=== PATIENT | male | born 1960 | race Caucasian/White ===

== ENCOUNTER 2016-08-29 18:30 | Inpatient (IN) | payer MEDICAID ==
[~2016-08-29] VITALS: Ht 188 cm; Wt 71.2 kg
[2016-08-29 18:32] VITALS: BP 130/98
[2016-08-29] MEDS ORDERED: POLY17PD65 GT (19:11)
[2016-08-29] MEDS ORDERED: MAGN400S60 GT (19:11)
[2016-08-29] MEDS ORDERED: BISA10SU46 RC (19:11)
[2016-08-29] MEDS ORDERED: TOPI25TA10 GT (19:11)
[2016-08-29] MEDS ORDERED: SACC250C4 GT (19:11)
[2016-08-29] MEDS ORDERED: KEP500I GT (19:11)
[2016-08-29] MEDS ORDERED: ASCO500S14 GT (19:11)
[2016-08-29] MEDS ORDERED: SYN.05 GT (19:11)
[2016-08-29] MEDS ORDERED: MOME0.051 NS (19:11)
[2016-08-29] MEDS ORDERED: CLOB10TA GT ×2 (19:11)
[2016-08-29] MEDS ORDERED: LEVE500V IV (19:11)
[2016-08-29] MEDS ORDERED: ROB1 GT (19:11)
[2016-08-29] MEDS ORDERED: LACO200T GT (19:11)
[2016-08-29] MEDS ORDERED: NA P135N RC (19:11)
[2016-08-29] MEDS ORDERED: BENZ2TAB27 GT (19:11)
[2016-08-29] MEDS ORDERED: ALBU-71 IH (19:11)
[2016-08-29] MEDS ORDERED: METO5SOL19 GT (19:11)
[2016-08-29] MEDS ORDERED: MONT10TA35 GT (19:11)
[2016-08-29] MEDS ORDERED: ATI.5 GT (19:11)
[2016-08-29] MEDS ORDERED: [UNRECOGNIZED DRUG - CODE] GT (19:11)
[2016-08-29] MEDS ORDERED: COM25S RC (19:11)
[2016-08-29] MEDS ORDERED: ACET160O46 GT (19:11)
[2016-08-29] MEDS ORDERED: DEXT15EL GT (19:11)
[2016-08-29] MEDS ORDERED: [UNRECOGNIZED DRUG - CODE] GT (19:11)
[2016-08-29] MEDS ORDERED: CARB200T1 GT ×2 (19:11)
[2016-08-29] MEDS ORDERED: LACT10SO11 GT (19:11)
--- NOTE | 2016-08-29 19:19 | NUR ---
PT NETO BLS. TAKEN TO BED 8
[2016-08-29 19:46] LABS: RED BLOOD CELL COUNT(AUTO) 4.76 MIL/uL (4.20-6.10); WHITE BLOOD COUNT (AUTO) 13.9 K/uL (4.8-10.8)
[2016-08-29 19:49] LABS: BASOPHILS # (AUTO) 0.5 K/uL (0.00-0.22); BASOPHILS % (AUTO) 3.7 % (0.0-2.0); EOSINOPHILS # (AUTO) 0.2 K/uL (0-0.4); EOSINOPHILS % (AUTO) 1.3 % (0.0-4.0); HEMATOCRIT 46.7 % (36-52); HEMOGLOBIN 15.2 g/dL (12.0-18.0); LYMPHOCYTES # (AUTO) 2.7 K/uL (2.0-11.5); LYMPHOCYTES % (AUTO) 19.1 % (20.5-51.1); MEAN CORPUSCULAR HEMOGLOBIN 32 pg (27-31); MEAN CORPUSCULAR HGB CONC 33 g/dL (33-37); MEAN CORPUSCULAR VOLUME 98 fL (80-94); MONOCYTES # (AUTO) 0.6 K/uL (0.8-1.0); MONOCYTES % (AUTO) 4.4 % (1.7-9.3); NEUTROPHILS # (AUTO) 9.9 K/uL (1.8-7.7); NEUTROPHILS % (AUTO) 71.5 % (42.2-75.2); PLATELET COUNT (AUTO) 315 K/uL (140-450); RED CELL DISTRIBUTION WIDTH 12.6 % (11.6-13.7)
[2016-08-29 19:54] LABS: CARBON DIOXIDE 31.3 mmol/L (21-32); POTASSIUM 3.3 mmol/L (3.5-5.1)
[2016-08-29 20:00] LABS: ALBUMIN 2.4 g/dL (3.4-5.0); TOTAL BILIRUBIN 0.3 mg/dL (0.0-1.0)
--- NOTE | 2016-08-29 20:00 | NUR ---
56Y/M PT. BIBA TO ED WITH C/O FEVER X 2 DAYS. PER EMS;BRAN PT. FROM [facility], HAVING FEVER X 2 DAYS AT 1400 T105, TYLENOL GIVEN T 100.4. O2 SAT 85 % ON SCENE, O2 2 LPM VIA NC, O2 SAT 96%. HX. HYPOTHYROIDISM, APHASIC, ON GT-TUBE, EPILEPSY. PT. AWAKE WITH EYES OPEN, RESPONSIVE TO TOUCH AND VERBAL STIMULI. BEDBOUND, ABLE TO MOVE BUE. RESPIRATIONS ON O2 2LPM VIA NC, EVEN AND UNLABORED, BL CLEAR, O2 SAT 97%. SKIN WARM AND DRY TO TOUCH. VSS, NO S/SX OF DISTRESS AT THIS TIME. ER MD MADE AWARE OF PT. STATUS.
[2016-08-29 20:10] LABS: LACTIC ACID 1.2 mmol/L (0.4-2.0)
[2016-08-29] MEDS ORDERED: ERYTHROMYCIN IV ONE (20:35)
[2016-08-29] MEDS ORDERED: VANCOMYCIN 1,000 MG in DEXTROSE 5% 250 ML IV ONE (20:35)
[2016-08-29] MEDS ORDERED: NACL 0.9% IV ONE (20:35)
[2016-08-29] MEDS ORDERED: NACL 0.9% 1,000 ML IV ONE (20:40)
[2016-08-29 20:58] LABS: BLOOD GAS BASE EXCESS 2.5 mmol/L (-2.0-2.0); BLOOD GAS HCO3 27.8 mmol/L; BLOOD GAS PCO2 45.2 mmHg (20-50); BLOOD GAS PH 7.406 (7.35-7.45); BLOOD GAS PO2 134.9 mmHg
[2016-08-29 20:59] LABS: BLOOD GAS O2 SAT% 98.6 % (92.0-98.5)
--- NOTE | 2016-08-29 21:12 | NUR ---
CALLED HOUSE SUP TO HAVE PHARMACY CALLED IN FOR ERYTHROCIN IVPB. ETA [address] SIERRA NOTIFTED.
[2016-08-29] MEDS ORDERED: NACL 0.9% IV SCH (21:54)
[2016-08-29] MEDS ORDERED: ERYTHROMYCIN IV SCH (21:54)
[2016-08-29] MEDS ORDERED: MORPHINE SULFATE 2 MG/ML SYR IVP PRN (22:00)
[2016-08-29] MEDS ORDERED: DOCUSATE SODIUM 100 MG GELCAP PO PRN (22:00)
[2016-08-29] MEDS ORDERED: ACETAMINOPHEN 325 MG TAB PO PRN (22:00)
[2016-08-29] MEDS ORDERED: ACETAMINOPHEN 650 MG/20.3 ML UDC GT PRN (22:05)
[2016-08-29] MEDS ORDERED: MAGNESIUM HYDROXIDE 2400 MG/30 ML UDC GT PRN (22:05)
[2016-08-29] MEDS ORDERED: PROCHLORPERAZINE 25 MG SUPP RC PRN (22:05)
[2016-08-29] MEDS ORDERED: DEXTROMETHORPHAN HBR 15 MG GT PRN (22:05)
[2016-08-29] MEDS ORDERED: levETIRAcetam 100 MG/ML VIAL IV SCH (22:05)
[2016-08-29] MEDS ORDERED: CLINDAMYCIN 300 MG in DEXTROSE 5% 50 ML IV SCH (22:05)
[2016-08-29] MEDS ORDERED: BISACODYL 10 MG SUPP RC PRN (22:05)
[2016-08-29] MEDS ORDERED: SODIUM PHOSPHATE 118 ML ENEM RC PRN (22:05)
[2016-08-29] MEDS ORDERED: ALBUTEROL SULFATE/IPRATROPIU 3 ML SOL IH SCH (22:10)
--- NOTE | 2016-08-29 22:12 | NUR ---
Patient will be admitted to care of DR. GALLARDO. Admited to TELEMETRY. Will go to room 124A. Belongings list completed. Report to AG BEDOLLA.
--- NOTE | 2016-08-29 22:20 | NUR ---
ADMITTED THIS 56 YEAR OLD MALE FROM ER PER BEKAH WITH CC OF FEVER, ASSESSMENT DONE, LETHARGIC, EYES CLOSED BUT SQUIRMS WHEN MRSA NARES OBTAINED, VITAL SIGNS STABLE, AFEBRILE, NO SOB NOTED, ON O2 AT 2L/NC, RT BUTTOCKS OPEN WOUND NOTED, LEFT BUTTOCKS AND RT HIP WITH HEALED WOUND, TOTAL CARE, WILL REPOSITION Q2H AND OFFLOAD PRESSURE AREAS, PT WITH HISTORY OF MR, SEIZURE AND CEREBRAL PALSY, SAFETY MEASURES IN PLACE, SIDE RAILS PADDED AND UP, BED ALARM ON, CALL LIGHT WITHIN REACH.
[2016-08-29] MEDS: NACL 0.9% 1,000 ML IV SCH (22:43)
--- NOTE | 2016-08-29 22:45 | NUR ---
CHADWICK FROM [facility] CALLED, PT'S HX OBTAINED FROM HER, CAN CALL [facility] AT [phone] TO [phone] FOR MORE INFORMATION AT #[phone], ERYTHROMYCIN IVPB STARTED, MONITORED FOR REACTION, IVF OF NS AT 100ML/H STARTED, ALL NEEDS ANTICIPATED.
[2016-08-29 22:46] LABS: APPEARANCE,URINE HAZY (CLEAR); BILIRUBIN,URINE NEGATIVE (NEGATIVE); BLOOD, URINE NEGATIVE (NEGATIVE); COLOR,URINE YELLOW (YELLOW); LEUKOCYTE ESTERASE ,URINE 1+ (NEGATIVE); NITRITE, URINE NEGATIVE (NEGATIVE); PH,URINE 5.5 (5.0-9.0); PROTEIN,URINE TRACE (NEGATIVE); UGLUCOSE NEGATIVE (NEGATIVE); UROBILINOGEN,URINE 0.2 EU/dL (0.2 - 1)
[2016-08-29 22:57] LABS: AMPHETAMINE, URINE NEG. ng/ml (NEG <=1000); BARBITURATE, URINE NEG. ng/ml (NEG <=200); BENZODIAZEPINE, URINE POS. ng/mL (NEG <=200); CANNABINOID, URINE NEG. ng/mL (NEG <=50); COCAINE, URINE NEG. ng/mL (NEG <=300); OPIATE, URINE NEG. ng/mL (NEG <=2000); PHENCYCLIDINE SCREEN,URINE NEG. ng/mL (NEG <=25)
[2016-08-29] MEDS ORDERED: CLINDAMYCIN 600 MG/4 ML VIAL ONE (22:57)
[2016-08-29 23:02] LABS: BACTERIA,URINE 2+ /HPF (None Seen); RBC,URINE 0-5 (RARE) /HPF (0-5); WBC,URINE 80-100 /HPF (0-5)
[2016-08-29 23:03] LABS: SQUAMOUS EPITHELIAL CELL,UR 4-10 (MOD) /LPF (0-3 (FEW))
[2016-08-29 23:44] LABS: INR 1.1 (0.8-1.2); PROTHROMBIN TIME 11.1 secs (10.8-13.4)
[2016-08-29 23:53] LABS: CHOL/HDL RATIO 4.9 (1-4.5); PHOSPHORUS 3.9 mg/dL (2.5-4.9); THYROID STIMULATING HORMONE 1.98 uIU/mL (0.34-3.76)
[2016-08-30] VITALS (7 sets, daily range): BP systolic 85–119; BP diastolic 54–74
--- NOTE | 2016-08-30 | NUR ---
PT OCCASIONALLY MOANS AND OPEN EYES TO TOUCH, VITAL SIGNS STABLE, NO SIGNS OF PAIN OR SOB, IV ANTIBIOTIC CURRENTLY INFUSING WELL, SCD'S APPLIED, CONTINUE TO MONITOR CLOSELY.
--- NOTE | 2016-08-30 01:10 | NUR ---
PT WITH LOOSE FOUL SMELLING GREENISH BLACK STOOL MODERATE AMOUNT, PERINEAL CARE DONE, REPOSITION TO RT SIDE AND OFFLOAD PRESSURE AREAS, PAGED DR GALLARDO AND MADE AWARE OF LOOSE STOOL AND TO ORDER STOOL FOR C-DIFF AND MRSA OF NARES, AWAITING ORDERS.
--- NOTE | 2016-08-30 04:00 | NUR ---
PT AROUSABLE TO TOUCH, VITAL SIGNS STABLE, NO SOB NOTED, FLACC-0, ORAL CARE DONE, IVF INFUSING WELL, MONITORED CLOSELY.
--- NOTE | 2016-08-30 05:30 | NUR ---
PT WITH LOOSE STOOL MODERATE AMOUNT, SENT STOOL FOR C-DIFF, NO DRAINAGE NOTED ON G-TUBE SITE, G-TUBE CLAMPED AT THIS TIME, NEW GAUZE APPLIED TO GT SITE, MONITORED CLOSELY.
[2016-08-30 05:47] LABS: BASOPHILS # (AUTO) 0.2 K/uL (0.00-0.22); BASOPHILS % (AUTO) 1.9 % (0.0-2.0); EOSINOPHILS # (AUTO) 0.2 K/uL (0-0.4); EOSINOPHILS % (AUTO) 1.9 % (0.0-4.0); HEMATOCRIT 37.1 % (36-52); HEMOGLOBIN 12.3 g/dL (12.0-18.0); LYMPHOCYTES # (AUTO) 2.3 K/uL (2.0-11.5); MEAN CORPUSCULAR HEMOGLOBIN 33 pg (27-31); MEAN CORPUSCULAR HGB CONC 33 g/dL (33-37); MEAN CORPUSCULAR VOLUME 99 fL (80-94); MONOCYTES # (AUTO) 0.7 K/uL (0.8-1.0); MONOCYTES % (AUTO) 6.2 % (1.7-9.3); NEUTROPHILS # (AUTO) 7.6 K/uL (1.8-7.7); PLATELET COUNT (AUTO) 243 K/uL (140-450); RED BLOOD CELL COUNT(AUTO) 3.74 MIL/uL (4.20-6.10); RED CELL DISTRIBUTION WIDTH 12.3 % (11.6-13.7)
[2016-08-30 06:40] LABS: ANION GAP 11.4 (8-16); CALCIUM 7.4 mg/dL (8.5-10.1); CARBON DIOXIDE 27.9 mmol/L (21-32); CREATININE 0.8 mg/dL (0.6-1.3); POTASSIUM 3.3 mmol/L (3.5-5.1)
--- NOTE | 2016-08-30 07:10 | NUR ---
RECEIVED PT REPORT AT BEDSIDE FROM NIGHT NURSE. PT IS APHASIC AND LEGALLY BLIND. PT HAD NOTED IV ON THE L THUMB WITH IVF RUNNING. PT SHOWS NO S/S OF DISTRESS ON 2L O2 NC. PT HAS FLACC (FACE, LEGS, ACTIVITY, CRY AND CONSOLABILITY) OF 0. PT HAS A NOTED OPEM PRESSURE WOUND ON THE R BUTTOCK. PT'S BED IS LOWERED WITH CALL LIGHT WITHIN REACH. PT COULD NO COMPREHEND EDUCATION GIVEN. WILL CONTINUE TO MONITOR.
--- NOTE | 2016-08-30 07:10 | NUR ---
PT SLEEPING, NO SIGNS OF DISTRESS, REPORT GIVEN TO AG MORALEZ FOR CONTINUITY OF CARE.
--- NOTE | 2016-08-30 07:25 | NUR ---
CALLED [facility] AND TALKED TO CHARGE NURSE CAIT TO FOLLOW UP PT'S PNEUMONIA VACCINATION STATUS, SHE SAID SHES PASSING MEDS AT THIS TIME AND WILL CALL BACK LATER, PHONE NUMBER PROVIDED.
--- NOTE | 2016-08-30 08:30 | NUR ---
DR GALLARDO AND DR GILMAN WERE MADE AWARE OF PT POTASSIUM 3.3.
[2016-08-30] MEDS ORDERED: MOMETASONE FUROATE 0.05 MG NS SCH (09:00)
[2016-08-30] MEDS ORDERED: FLUTICASONE NASAL 50 MCG/ACTUATION 16 GM BTL NS SCH (09:00)
[2016-08-30] MEDS ORDERED: NON-FORMULARY ITEM (Lacosamide (Vimpat) 200 MG) GT SCH (09:00)
[2016-08-30] MEDS ORDERED: LEVOFLOXACIN 750 MG/D5W PREMIX 150 ML IV SCH (09:00)
[2016-08-30] MEDS ORDERED: carBAMazepine 200 MG TAB GT SCH ×2 (09:00)
[2016-08-30] MEDS ORDERED: CLOBAZAM 10 MG GT SCH ×2 (09:00)
[2016-08-30] MEDS ORDERED: LACTULOSE 20 GM/30 ML UDC GT SCH (09:00)
[2016-08-30] MEDS ORDERED: MODAFINIL 100 MG GT SCH (09:00)
[2016-08-30] MEDS: NACL 0.9% 1,000 ML IV SCH ×2 (09:00→17:36)
[2016-08-30] MEDS ORDERED: LACTOBACILLUS RHAMNOSUS GG 1 EACH CAP PO SCH (09:00)
[2016-08-30] MEDS ORDERED: NON-FORMULARY ITEM (Saccharomyces Boulardii* (Florastor*) 250 MG) GT SCH (09:00)
--- NOTE | 2016-08-30 09:00 | NUR ---
PT IS IN BED IN HIGH FOWLERS POSITION AND SHOWS NO S/S OF DISTRESS ON ROOM AIR NOW. PT'S BED IS LOWERED WITH CALL LIGHT WITHIN REACH. WILL CONTINUE TO MONITOR.
--- NOTE | 2016-08-30 10:00 | NUR ---
UNABLE TO ADMINISTER SCHEDULED MEDICATIONS DUE TO MEDICATIONS NOT READY. WILL AWAIT FOR MD ORDERS.
--- NOTE | 2016-08-30 10:04 | NUR ---
PATIENT HAS BEEN SCREENED AND CATEGORIZED HIGH NUTRITION RISK. PATIENT WILL BE SEEN WITHIN 1-2 DAYS OF ADMISSION. 08/30/16-08/31/[address]
[2016-08-30] MEDS ORDERED: SODIUM PHOSPHATE 118 ML ENEM RC PRN ×2 (10:55)
[2016-08-30] MEDS ORDERED: POTASSIUM CHLORIDE 20% 40 MEQ/15 ML UDC GT SCH (10:57)
[2016-08-30] MEDS ORDERED: MAGNESIUM HYDROXIDE 2400 MG/30 ML UDC GT PRN ×2 (10:59→18:45)
[2016-08-30] MEDS: TOPIRAMATE 25 MG TAB GT SCH ×2 (11:18→21:51)
[2016-08-30] MEDS: LEVOTHYROXINE 0.05 MG TAB GT SCH (11:18)
[2016-08-30] MEDS: GLYCOPYRROLATE 1 MG TAB GT SCH ×3 (11:18→17:18)
[2016-08-30] MEDS: MONTELUKAST SODIUM 10 MG TAB GT SCH (11:18)
[2016-08-30] MEDS: BENZTROPINE 1 MG TAB GT SCH ×2 (11:19→21:52)
[2016-08-30] MEDS: CHLORPHENIRAMINE 4 MG TAB GT SCH ×2 (11:19→21:00)
[2016-08-30] MEDS: METOCLOPRAMIDE 10 MG/10 ML SYRP UDC GT SCH ×4 (11:20→21:51)
--- NOTE | 2016-08-30 11:20 | NUR ---
PT WAS PLACED IN HIGH FOWLERS POSITIONS. ASPIRATED AND CONFIRMED PLACEMENT OF G TUBE. NO RESIDUAL WAS NOTED. PT MEDICATIONS WERE CRUSHED AND GIVEN WITH 10 ML OF WATER FLUSH BEFORE, IN BETWEEN, AND AFTER MED ADMINISTRATION. PT TOLERATED ACTIVITY WELL. PT PLACED IN HIGH FOWLERS POSITION STILL. PT BED WAS LOWERED WITH CALL LIGHT WITHIN REACH.
[2016-08-30] MEDS: LACTOBACILLUS RHAMNOSUS GG 1 EACH CAP PO SCH (11:21)
--- NOTE | 2016-08-30 12:00 | NUR ---
PT WAS FOUND WITH YELLOW EMESIS ON GOWN AND COUGHING. PT WAS SUCTIONED AND HAD YELLOW GREEN EMESIS IN SUCTION CONTAINER. PT IS INCONTINENT AND HAD LARGE LOOSE FOUL SMELLING STOOL. PT WAS GIVEN BED BATH. PT BED LINENS AND GOWN WERE CHANGED. PT WAS REPOSITIONED. PT IS SITTING COMFORTABLY IN BED NOW IN HIGH FOWLERS POSITION.
--- NOTE | 2016-08-30 13:08 | NUR ---
RECEIVED CALL FROM LAB ABOUT PT POSITIVE RESULTS FOR C DIFF WILL NOTIFY RESIDENTS.
[2016-08-30] MEDS: levETIRAcetam 100 MG/ML ORASYR GT SCH ×2 (13:52→17:18)
--- NOTE | 2016-08-30 14:30 | NUR ---
PT WAS FOUND COUGHING WITH MINIMAL EMESIS ON SHEETS. PT WAS SUCTIONED AND HAD YELLOW GREEN EMESIS IN SUCTION CONTAINER. PT IS IN HIGH FOWLERS POSITIONS. PT STOPPED COUGHING AND IS RESTING COMFORTABLY IN BED WITH NO S/S OF DISTRESS ON ROOM AIR. PT V/S ARE BP 112/54, HR 74, RESPIRATIONS 22, O2 SAT 92%. WILL NOTIFY DR. GALLARDO OF PT CONDITION.
[2016-08-30] MEDS: ONDANSETRON 4 MG/2 ML VIAL IVP PRN (14:51)
--- NOTE | 2016-08-30 14:51 | NUR ---
ADMINISTERED PRN N/A MEDIATION TO PT. PT TOLERATED ACTIVITY WELL. PT BED IS LOWERED WITH CALL LIGHT WITHIN REACH. WILL CONTINUE TO MONITOR.
--- NOTE | 2016-08-30 15:00 | NUR ---
PT PULLED OUT IV WITH CANNULA STILL INTACT WHEN RN WAS IN ROOM. PT WAS GIVEN NEW SHEETS. PT SHOWS NO S/S OF DISTRESS ON ROOM AIR. WILL CONTINUE TO MONITOR.
--- NOTE | 2016-08-30 15:15 | NUR ---
DR GALLARDO WAS NOTIFIED OF PT VOMITING EPISODES AND RECENT V/S.
--- NOTE | 2016-08-30 15:40 | NUR ---
DR RENDON WAS MADE AWARE OF PT DIET NOT PLACE IN YET. ALSO, WAS NOTIFIED OF LAB RESULTS FOR POSITIVE C DIFF. WAS ALSO MADE AWARE OF PT VOMITING AND OPEN PRESSURE WOUND ON THE R BUTTOCK. WILL AWAIT FOR ORDERS.
--- NOTE | 2016-08-30 16:40 | NUR ---
PT WAS FOUND RESTLESS AND INCONTINENT. PT VOIDED AND HAD MODERATE LOOSE STOOL. PT WAS THEN GIVEN PERINEAL CARE AND PROVIDED WITH NEW LINENS. PT WAS REPOSITIONED. PT TOLERATED ACTIVITY WELL.
--- NOTE | 2016-08-30 17:18 | NUR ---
PT IS IN HIGH FOWLERS POSITION. G TUBE WAS CHECKED FOR PLACEMENT AND ASPIRATED WITH NO RESIDUAL. G TUBE WAS THEN FLUSHED WITH 10 ML OF WATER.ADMINISTERED SCHEDULED MEDICATIONS. THEN FLUSHED AGAIN WITH 10 ML OF WATER. PT TOLERATED ACTIVITY WELL. PT BED WAS LOWERED WITH CALL LIGHT WITHIN REACH. WILL CONTINUE TO MONITOR.
--- NOTE | 2016-08-30 18:19 | NUR ---
PT IS IN BED AWAKE AND SHOWS NO S/S OF DISTRESS ON ROOM AIR. PT BED IS LOWERED WITH CALL LIGHT WITHIN REACH.
[2016-08-30] MEDS ORDERED: DOCUSATE SODIUM 100 MG GELCAP PO PRN ×2 (18:45→18:50)
[2016-08-30] MEDS: NACL 0.45% 1,000 ML IV SCH ×2 (18:50→23:15)
[2016-08-30] MEDS ORDERED: POTASSIUM CHLORIDE 20% 40 MEQ/15 ML UDC GT ONE (19:00)
--- NOTE | 2016-08-30 19:20 | NUR ---
PT IS POSITIONED IN HIGH FOWLERS WITH BED LOWERED WITH CALL LIGHT WITHIN REACH. PT IS APHASIC AND MUMBLES. PT SHOWS NO S/S OF DISTRESS ON ROOM AIR. PT HAS IVF'S RUNNING ON THE L HAND WHICH IS PATENT AND INTACT. PT HAS SCD'S PLACED. NEW ORDERS FOR G TUBE FEEDING WERE ENDORSED TO NIGHT NURSE. GAVE PT REPORT AT BEDSIDE TO NIGHT NURSE. PT ENDORSED IN STABLE CONDITION.
--- NOTE | 2016-08-30 19:21 | NUR ---
RECD. RESTING IN BED, AWAKE, APHASIC. RESPIRATION EVEN AND UNLABORED. GT INTACT AND PATENT. IV OF NS INFUSING AT 100M ML/HR LEFT HAND G 22. ON SEIZURE PRECAUTION, SIDE RAILS PADDED. WITH MITTENS ON BILATERAL HANDS, TRYING TO PULL IV LINES. REORIENTED TO HOSPITAL SETTING. NEEDS REINFORCEMENT. PRESSURE ULCER ON RIGHT BUTTOCK DRY, NO DRAINAGE NOTED, OPEN TO AIR. NO APPEARANCE OF PAIN NOTED 0/10.
--- NOTE | 2016-08-30 20:30 | NUR ---
TRYING TO GET OUT OF BED, REPOSITIONED WITH PILLOWS FOR COMFORT.
[2016-08-30] MEDS: POLYETHYLENE GLYCOL 17 GM/PKT GT SCH (21:00)
[2016-08-30] MEDS: Z-GUARD PASTE TP SCH (21:00)
[2016-08-30] MEDS ORDERED: POLYETHYLENE GLYCOL 17 GM/PKT GT SCH (21:00)
[2016-08-30] MEDS: LORazepam 0.5 MG TAB GT PRN (21:51)
--- NOTE | 2016-08-30 21:52 | NUR ---
DUE GT MEDICATIONS GIVEN, TOLERATED WELL.
--- NOTE | 2016-08-30 22:00 | NUR ---
HAD A SMALL AMOUNT OF GREENISH LOOSE BM. CLEANSED AND REPOSITIONED IN BED.
[2016-08-30] MEDS ORDERED: cefTRIAXone 1,000 MG VIAL ONE (22:11)
[2016-08-30] MEDS ORDERED: POTASSIUM CHLORIDE 20% 40 MEQ/15 ML UDC ONE (22:29)
[2016-08-30] MEDS: metroNIDAZOLE 500 MG/NS PREMIX 100 ML IV SCH (22:57)
--- NOTE | 2016-08-30 23:30 | NUR ---
GT FEEDING OF NUTREN PULMONARY STARTED AT 20 ML/HR ORDERED.
[2016-08-31] VITALS: BP 112/63
--- NOTE | 2016-08-31 | NUR ---
TRYING TO GET OUT OF BED, REPOSITIONED WITH PILLOWS ON SIDES.
[2016-08-31] MEDS: NACL 0.45% 1,000 ML IV SCH ×2 (04:50→16:22)
--- NOTE | 2016-08-31 05:00 | NUR ---
IV ACCIDENTALLY PULLED OUT. NEW IV LINE INSERTED BY LIZETTE LUONG AT THE LEFT THUMB G20.
--- NOTE | 2016-08-31 05:15 | NUR ---
HAD LARGE LOOSE BM, YELLOWISH LIGHT GREEN IN COLOR. CLEANSED AND REPOSITIONED IN BED FOR COMFORT.
[2016-08-31] MEDS: metroNIDAZOLE 500 MG/NS PREMIX 100 ML IV SCH ×3 (05:38→18:27)
[2016-08-31 06:29] LABS: BASOPHILS # (AUTO) 0.1 K/uL (0.00-0.22); EOSINOPHILS # (AUTO) 0.2 K/uL (0-0.4); EOSINOPHILS % (AUTO) 2.1 % (0.0-4.0); HEMATOCRIT 35.8 % (36-52); LYMPHOCYTES # (AUTO) 1.3 K/uL (2.0-11.5); LYMPHOCYTES % (AUTO) 11.7 % (20.5-51.1); MEAN CORPUSCULAR HEMOGLOBIN 33 pg (27-31); MEAN CORPUSCULAR HGB CONC 34 g/dL (33-37); MEAN CORPUSCULAR VOLUME 99 fL (80-94); MONOCYTES # (AUTO) 0.5 K/uL (0.8-1.0); MONOCYTES % (AUTO) 4.4 % (1.7-9.3); NEUTROPHILS # (AUTO) 8.9 K/uL (1.8-7.7); NEUTROPHILS % (AUTO) 80.8 % (42.2-75.2); PLATELET COUNT (AUTO) 231 K/uL (140-450); RED BLOOD CELL COUNT(AUTO) 3.61 MIL/uL (4.20-6.10); RED CELL DISTRIBUTION WIDTH 12.2 % (11.6-13.7)
[2016-08-31 06:40] LABS: ANION GAP 9.4 (8-16); CARBON DIOXIDE 28.3 mmol/L (21-32); CREATININE 0.6 mg/dL (0.6-1.3); POTASSIUM 3.7 mmol/L (3.5-5.1)
[2016-08-31 06:45] LABS: MAGNESIUM 1.7 mg/dL (1.8-2.4); PHOSPHORUS 2.1 mg/dL (2.5-4.9)
--- NOTE | 2016-08-31 07:01 | NUR ---
RESTING IN BED, GT RESIDUAL CHECKED, 0 RESIDUAL. GT FEEDING TOLERATED WELL. CONDITION REMAIN STABLE. SAFETY MAINTAINED DURING SHIFT. WILL ENDORSE TO AM NURSE FOR CONTINUITY OF CARE.
--- NOTE | 2016-08-31 07:25 | NUR ---
ENDORSED TO AG MORALEZ FOR CONTINUITY OF CARE.
--- NOTE | 2016-08-31 07:25 | NUR ---
RECEIVED PT REPORT AT BEDSIDE FROM NIGHT NURSE. PT IS APHASIC, AWAKE AND SHOWS NO S/S OF DISTRESS ON ROOM AIR. PT HAS A NOTED IV ON THE L HAND WITH IVF'S RUNNING. IV IS PATENT AND INTACT. PT'S FLACC IS 0. PT'S SKIN IS NON-INTACT WITH R BUTTOCK PRESSURE WOUND. PT IS ON TELE MONITORING. PT ALSO HAS SEIZURE PRECAUTIONS IN PLACE. PT HAS SCD'S IN PLACE. THE BED IS LOWERED WITH THE CALL LIGHT WITHIN REACH. PT IS UNABLE TO UNDERSTAND POC FOR TODAY. WILL CONTINUE TO MONITOR.
[2016-08-31 08:00] VITALS: BP 180/79
--- NOTE | 2016-08-31 08:00 | NUR ---
PT WAS FOUND RESTLESS IN BED WITH VOMIT ON GOWN AND BED SHEETS. PT IS INCONTINENT OF URINE AND LOOSE STOOL. PT WAS GIVEN PERINEAL CARE. THE BED LINENS AND GOWN WERE CHANGED. WHILE REPOSITIONED PT HAD A SEIZURE THAT LAST 8 SECONDS. PT IS NOW AWAKE AND SHOWS NO S/S OF DISTRESS ON ROOM AIR. PT V/S WERE 180/79, PULSE 90, RESPIRATIONS 20, AND TEMPERATURE 97.6. PT WILL BE GIVEN ATIVAN 0.5 MG FOR SEIZURE MD ORDERED. PT BED IS LOWERED IN HIGH FOWLERS POSITION AND WITH SEIZURE PRECAUTIONS IN PLACE. PT IS NOW RESTING COMFORTABLY IN BED.
--- NOTE | 2016-08-31 08:15 | NUR ---
PT BP IS NOW 115/79, HR 74, SAT O2 97%, AND SHOWS NO S/S OF DISTRESS ON ROOM AIR.
--- NOTE | 2016-08-31 08:30 | NUR ---
DR GILMAN WAS NOTIFIED OF PT'S MAGNESIUM OF 1.7. MD IS ALSO AWARE OF SEIZURE THAT LAST 8 SECONDS. WILL AWAIT FOR ORDERS.
[2016-08-31] MEDS: MONTELUKAST SODIUM 10 MG TAB GT SCH (08:50)
[2016-08-31] MEDS: TOPIRAMATE 25 MG TAB GT SCH ×2 (08:50→20:42)
[2016-08-31] MEDS: LORazepam 0.5 MG TAB GT PRN (08:51)
[2016-08-31] MEDS: LEVOTHYROXINE 0.05 MG TAB GT SCH (08:51)
[2016-08-31] MEDS: CHLORPHENIRAMINE 4 MG TAB GT SCH ×2 (08:51→20:42)
--- NOTE | 2016-08-31 08:51 | NUR ---
PT WAS GIVEN ATIVAN 0.5 MG FOR HIS SEIZURE THAT LASTED 8 SECONDS DURING REPOSITIONING. PT IS AWAKE, APHASIC AND SHOWS NO S/S OF DISTRESS ON ROOM AIR.
[2016-08-31] MEDS: LACTOBACILLUS RHAMNOSUS GG 1 EACH CAP PO SCH ×2 (08:52→08:54)
[2016-08-31] MEDS: GLYCOPYRROLATE 1 MG TAB GT SCH ×3 (08:52→16:22)
[2016-08-31] MEDS: BENZTROPINE 1 MG TAB GT SCH ×2 (08:52→20:42)
[2016-08-31] MEDS: LACTULOSE 20 GM/30 ML UDC GT SCH (08:53)
[2016-08-31] MEDS: METOCLOPRAMIDE 10 MG/10 ML SYRP UDC GT SCH ×4 (08:53→20:43)
[2016-08-31] MEDS: levETIRAcetam 100 MG/ML ORASYR GT SCH ×3 (08:53→16:21)
--- NOTE | 2016-08-31 08:53 | NUR ---
PT IS PLACED IN HIGH FOWLERS POSITION. THE TUBE FEEDING WAS HELD TO ADMINISTER MEDICATIONS. RN CHECKED FOR PLACEMENT AND ASPIRATED G TUBE. THERE WAS NO RESIDUAL. THE G TUBE WAS FLUSHED WITH 10ML OF WATER. PT'S MEDS WERE CRUSHED. ADMINISTERED SCHEDULED MEDICATIONS. THE G TUBE WAS FLUSHED WITH 10 ML OF WATER. PT TUBE FEEDING WAS RESUMED. PT NEEDS WERE MET. WILL CONTINUE TO MONITOR.
[2016-08-31] MEDS: Z-GUARD PASTE TP SCH ×2 (09:00→20:44)
--- NOTE | 2016-08-31 11:15 | NUR ---
PT HAS SHOWS NO S/S OF DISTRESS ON ROOM AIR. PT IS SITTING IN BED COMFORTABLY.
--- NOTE | 2016-08-31 12:43 | NUR ---
PT WAS GIVEN PERINEAL CARE. PT WAS FOUND INCONTINENT OF MODERATE AMOUNT OF LOOSE STOOL AND URINE. PT WAS GIVEN NEW LINENS AND GOWN. PT WAS THEN REPOSITIONED WHEN PT HAD ANOTHER SEIZURE THAT LASTED 12 SECONDS. PT BP WAS 106/64, HR 65, SAT O2 97, RESPIRATIONS 24. PT SHOWS NO S/S OF DISTRESS ON ROOM AIR. THE BED IS LOWERED WITH CALL LIGHT WITHIN REACH.
[2016-08-31] MEDS: LORazepam 2 MG/ML VIAL IVP PRN (12:44)
--- NOTE | 2016-08-31 12:44 | NUR ---
PT WAS GIVEN ATIVAN 0.5 IVP FOR BREAKTHROUGH FOR SZ. PT IS STABLE AND SHOWS NO S/S OF DISTRESS ON ROOM AIR. PT HAS SEIZURE PRECAUTIONS IN PLACE. WILL CONTINUE TO MONITOR. Addendum: 08/31/16 at 2003 by Haritha Adam RN MEDICATION GIVEN FOR BREAKTHROUGH SEIZURE WAS ATIVAN 1 MG IVP NOT ATIVAN 0.5 MG IVP.
--- NOTE | 2016-08-31 15:00 | NUR ---
PT IS IN BED AND SHOWS NO S/S OF DISTRESS ON ROOM AIR. WILL CONTINUE TO MONITOR.
--- NOTE | 2016-08-31 16:21 | NUR ---
PT WAS GIVEN PERINEAL CARE WITH THE HELP OF DORINDA MONTOYA. PT WAS INCONTINENT OF URINE AND SMALL AMOUNT OF LOOSE STOOL. PT WAS GIVEN NEW LINENS AND GOWN. PT WAS REPOSITIONED. PT WAS THEN GIVEN SCHEDULED MEDICATIONS. RN CHECKED FOR PLACEMENT AND ASPIRATED. NO RESIDUAL WAS NOTED. G TUBE WAS FLUSHED WITH 10 ML OF WATER. MEDICATIONS WERE CRUSHED THEN DILUTED IN 10 ML OF WATER. ADMINISTERED MEDICATIONS THEN FLUSHED WITH 10 ML OF WATER. PT SHOWS NO S/S OF DISTRESS ON ROOM AIR. PT IS IN HIGH FOWLERS POSITION WITH TUBE FEEDING CONTINUATION. WILL CONTINUE TO MONITOR.
[2016-08-31 16:49] VITALS: BP 114/75
--- NOTE | 2016-08-31 18:27 | NUR ---
PT WAS FOUND INCONTINENT OF URINE AND SMALL AMOUNT OF STOOL. PT WAS GIVEN PERINEAL CARE AND REPOSITIONED WITH THE HELP OF DORINDA MONTOYA. PT TOLERATED ACTIVITY WELL. PT IS IN HIGH FOWLERS WITH CONTINUOS G TUBE FEEDING. ADMINISTERED SCHEDULED MEDICATION. IV IS PATENT, INTACT AND INFUSING WELL.
--- NOTE | 2016-08-31 19:15 | NUR ---
PT IS IN BED AND SHOWS NO S/S OF DISTRESS ON ROOM AIR. PT WAS ENDORSED IN STABLE CONDITION.
--- NOTE | 2016-08-31 19:16 | NUR ---
RECD. RESTING IN BED, AWAKE, APHASIC. IV OF 1/2 NS AT 100 ML/HR INFUSING, LEFT HAND G20. GT FEEDING OF NUTREN AT 20 ML INFUSING, SITE COVERED WITH DRESSING, DRY AND INTACT. ON BILATERAL LEG SEQUENTIALS. REORIENTED TO HOSPITAL SETTING. NO APPEARANCE OF PAIN NOTED 0/10.
--- NOTE | 2016-08-31 20:00 | NUR ---
Patient's Plan of Care was discussed and reviewed with MASTER SHEET CLERK: UYEN
--- NOTE | 2016-08-31 20:43 | NUR ---
RESIDUAL - 0, FEEDING TOLERATED WELL. DUE PO MEDICATIONS GIVEN VIA GT.
[2016-08-31] MEDS: POLYETHYLENE GLYCOL 17 GM/PKT GT SCH (20:44)
--- NOTE | 2016-08-31 21:30 | NUR ---
HAD MODERATE AMOUNT OF LOOSE BM, YELLOWISH COLOR. CLEANSED AND REPOSITIONED IN BED WITH PILLOWS.
[2016-09-01] VITALS: BP 130/71
--- NOTE | 2016-09-01 | NUR ---
SLEEPING COMFORTABLY IN BED.
[2016-09-01] MEDS: metroNIDAZOLE 500 MG/NS PREMIX 100 ML IV SCH ×3 (00:09→13:59)
--- NOTE | 2016-09-01 03:30 | NUR ---
KEPT ON MOVING IN BED BUT NO RESTLESSNESS NOTED, BEHAVE BETTER THAN YESTERDAY.
[2016-09-01 06:09] LABS: HEMATOCRIT 35.6 % (36-52); HEMOGLOBIN 12.1 g/dL (12.0-18.0); MEAN CORPUSCULAR HEMOGLOBIN 33 pg (27-31); MEAN CORPUSCULAR HGB CONC 34 g/dL (33-37); MEAN CORPUSCULAR VOLUME 98 fL (80-94); PLATELET COUNT (AUTO) 223 K/uL (140-450); RED BLOOD CELL COUNT(AUTO) 3.65 MIL/uL (4.20-6.10); RED CELL DISTRIBUTION WIDTH 12.3 % (11.6-13.7); WHITE BLOOD COUNT (AUTO) 11.9 K/uL (4.8-10.8)
[2016-09-01 06:19] LABS: ANION GAP 8.5 (8-16); CALCIUM 7.8 mg/dL (8.5-10.1); CARBON DIOXIDE 30.4 mmol/L (21-32); CREATININE 0.6 mg/dL (0.6-1.3)
--- NOTE | 2016-09-01 06:30 | NUR ---
HAD TWO LOOSE BM THIS SHIFT. CLEANSED AND REPOSITIONED WITH PILLOWS. NO SEIZURE NOTED DURING SHIFT. WILL ENDORSE TO AM NURSE FOR CONTINUITY OF CARE.
[2016-09-01 06:43] LABS: POTASSIUM 2.9 mmol/L (3.5-5.1)
[2016-09-01 07:09] LABS: BAND % (MANUAL) 4 % (0-8); LYMPHOCYTES % (MANUAL) 8 % (20-46); MONOCYTES % (MANUAL) 3 % (5-12); NEUTROPHILS % (MANUAL) 85 (43-65); PLATELET ESTIMATE ADEQUATE
--- NOTE | 2016-09-01 07:20 | NUR ---
ENDORSED TO JCARLOS FOR CONTINUITY OF CARE.
[2016-09-01] MEDS ORDERED: KCL 20 MEQ/WATER INJ PREMIX 200 ML IV SCH (07:25)
--- NOTE | 2016-09-01 07:30 | NUR ---
RECEIVED PT ON BED ASLEEP, AROUSABLE, APHASIC. NO SOB NOTED. NO SIGNS OF PAIN AT THIS TIME IV TO LEFT THUMB PATENT AND INTACT. CHEST, DIMINISHED AIR ENTRY TO THE BASES, CRACKLES HEARD BILATERALLY. ABDOMEN SOFT, BOWEL SOUNDS PRESENT, WITH G-TUBE FEEDING AT 20 MLS/HR. RESIDUAL OF 20 MLS NOTED. ON ASPIRATION PRECAUTIONS, HOB ABOVE 30 DEGREES. WITH RT BUTTOCK PRESSURE ULCER NOTED. PT IS REPOSITIONED EVERY [address]
[2016-09-01] MEDS ORDERED: VANCOMYCIN PER PHARMACY MC PRN (07:50)
[2016-09-01 08:00] VITALS: BP 135/79
[2016-09-01] MEDS: LACTULOSE 20 GM/30 ML UDC GT SCH (09:00)
[2016-09-01] MEDS ORDERED: VANCOMYCIN PER PHARMACY MC SCH (09:05)
--- NOTE | 2016-09-01 09:30 | NUR ---
SS NOTE: MESSAGE LEFT FOR [facility] CUT OFF SAW GRADER ([phone]) REGARDING POSSIBLE SNF PLACEMENT FOR IV ABX
[2016-09-01] MEDS: levETIRAcetam 100 MG/ML ORASYR GT SCH ×3 (09:50→18:08)
[2016-09-01] MEDS: METOCLOPRAMIDE 10 MG/10 ML SYRP UDC GT SCH ×4 (09:50→21:28)
[2016-09-01] MEDS: TOPIRAMATE 25 MG TAB GT SCH ×2 (09:50→21:29)
[2016-09-01] MEDS: BENZTROPINE 1 MG TAB GT SCH ×2 (09:51→21:28)
[2016-09-01] MEDS: CHLORPHENIRAMINE 4 MG TAB GT SCH ×2 (09:51→21:29)
[2016-09-01] MEDS: LACTOBACILLUS RHAMNOSUS GG 1 EACH CAP PO SCH (09:51)
[2016-09-01] MEDS: GLYCOPYRROLATE 1 MG TAB GT SCH ×3 (09:51→18:08)
[2016-09-01] MEDS: MONTELUKAST SODIUM 10 MG TAB GT SCH (09:51)
[2016-09-01] MEDS: LEVOTHYROXINE 0.05 MG TAB GT SCH (09:51)
[2016-09-01] MEDS: Z-GUARD PASTE TP SCH ×2 (09:52→21:29)
--- NOTE | 2016-09-01 10:00 | NUR ---
PT HAD BM X1, LARGE AMOUNT OF BROWN WATERY TO SOFT STOOLS.
[2016-09-01] MEDS: NACL 0.9% 1,000 ML IV SCH ×2 (10:02→19:52)
--- NOTE | 2016-09-01 10:34 | NUR ---
SS NOTE: I RECEIVED A CALL BACK FROM [facility] CREATIVE MANAGER ([phone] - DIRECT). SHE STATED THAT SHE PREFERS [facility], [place], [facility] OR [facility]. SHE ALSO STATED THAT SHE IS IN AGREEMENT WITH PT GOING TO ANY ACCEPTING SNF IF THOSE SNFS ARE UNABLE TO ACCEPT PT. SHE REPORTED THAT THEY DO NOT SIGN ADMISSION FORMS BUT CAN PROVIDE MEDICAL CONSENT FOR NON-EMERGENT PROCEDURES. SHE ALSO REPORTED THAT IF URGENT/EMERGENT CONSENT IS NEEDED THEN TWO PHYSICIANS PROVIDE CONSENT SINCE IT CAN BE A PROCESS TO OBTAIN CONSENT FROM THEM AND THEY ARE CLOSED ON THE WEEKENDS.
[2016-09-01] MEDS: POTASSIUM CHLORIDE 40 MEQ, LIDOCAINE 1% 25 MG in NACL 0.9% 250 ML IV SCH (10:39)
[2016-09-01] MEDS ORDERED: VANCOMYCIN 500 MG VIAL PO SCH (12:00)
[2016-09-01] MEDS ORDERED: SACC250C4 GT (12:37)
[2016-09-01] MEDS ORDERED: VANC125C4 PO (12:39)
--- NOTE | 2016-09-01 13:04 | NUR ---
SS NOTE: PER CORTNEY FROM [facility] ([phone]), THEY ARE ABLE TO ACCEPT PT AND THEY HAVE AN ISO BED AVAILABLE FOR HIM. SHE STATED THAT PT CAN GO TO ROOM 32A UNDER DR. Kimber BROWN ANYTIME AFTER 1500. MAINTAINER SEWER AND WATERWORKS, CHADWICK FROM [facility] AND PT[facility]S [facility] TOWER EXCAVATOR OPERATOR, TABITHA RICHMOND AWARE Addendum: 09/01/16 at 1306 by Evie Dan SS PER ANGEL FROM [facility], NO ISO BEDS AVAILABLE PER KIKA FROM [facility], NO ISO BEDS AVAILABLE
[2016-09-01] MEDS ORDERED: PIPE1PDS26 IV (13:19)
--- NOTE | 2016-09-01 13:22 | NUR ---
SS NOTE: PER CORTNEY FROM [facility], THEY ARE NOT LONGER ABLE TO ACCEPT PT NOW THAT PT HAS VRE IN THE URINE. [facility] CLICKER OPERATOR, TABITHA MADE AWARE OF THE ABOVE INFORMATION AND IS IN AGREEMENT WITH PT GOING TO ANY ACCEPTING SNF
--- NOTE | 2016-09-01 14:04 | NUR ---
SS NOTE: SENT SNF INQUIRIES TO: - [facility] [place] [facility] - [facility] - [facility] - [facility] - [facility]
--- NOTE | 2016-09-01 14:41 | NUR ---
09/01/16 RD INITIAL ASSESSMENT COMPLETED PLEASE REFER TO NUTRITION ASSESSMENT UNDER CARE ACTIVITY FOR ESTIMATED NUTRITIONAL NEEDS. 1. WHEN MEDICALLY FEASIBLE, RESUME EN SUPPORT: NUTREN PULMONARY TO START AT 20 ML/HR, ADVANCE 10 ML Q8H TO A GOAL RATE OF 60 ML/HR (PROVIDES 2160 KCAL, 97 G PROTEIN, 1126 ML FREE WATER - MEETS 100% ESTIMATED KCAL+PROTEIN NEEDS) 2. RD TO FOLLOW-UP 2-3 DAYS; HIGH RISK WHIT MORRISSEY, BASSAM
--- NOTE | 2016-09-01 15:13 | NUR ---
PT'S DISCHARGE PENDING SNF AVAILABILITY.
--- NOTE | 2016-09-01 16:33 | NUR ---
SS NOTE: PER SEKOU FROM [facility], NO ISO BEDS AVAILABLE PER JUNE FROM [facility], NO ISO BEDS AVAILABLE PER KIM FROM [facility], THEY ARE UNABLE TO ACCEPT PT BECAUSE [facility] DOES NOT PAY FOR IV ABX PER BELEM FROM [facility], NO ISO BEDS AVAILABLE PER ANYA FROM [facility], NO ISO BEDS AVAILABLE Addendum: 09/02/16 at 1051 by Evie Dan SS PER COURTNEY FROM [facility], NO ISO BEDS AVAILABLE
[2016-09-01 17:00] VITALS: BP 99/59
--- NOTE | 2016-09-01 19:09 | NUR ---
PT RESTING. NO SOB NOTED. NO COMPLAINTS MADE. WILL ENDORSE TO NEXT SHIFT NURSE FOR CONTINUITY OF CARE.
--- NOTE | 2016-09-01 19:10 | NUR ---
RECD. RESTING IN BED, ASLEEP BUT OPENS EYES WHEN HAND MOVED AND QUESTIONS ASKED, PATIENT IS APHASIC. IV OF NS AT 70 ML/HR INFUSING, LEFT HAND G20. GT FEEDING OF NUTREN AT 20 ML/HR INFUSING. RESIDUAL CHECKED - 0. NO SOB BUT WITH CRACKLES NOTED. SUCTIONING DONE, WITH MODERATE AMOUNT OF PHLEGM OBTAINED. 02 SAT - 96-97% ON ROOM AIR. HOB MAINTAINED AT 35 DEGREES. WITH PRESSURE ULCER ON RIGHT BUTTOCKS, WILL REPOSITIONED PATIENT FREQUENTLY, OFF LOAD PRESSURE AREAS. ON BILATERAL LEG SEQUENTIALS. NO APPEARANCE OF PAIN NOTED 0/10.
[2016-09-01] MEDS: POLYETHYLENE GLYCOL 17 GM/PKT GT SCH (21:00)
[2016-09-01] MEDS ORDERED: PIPER/TAZO 3.375GM/D5W PREMIX 50 ML IV SCH (21:00)
--- NOTE | 2016-09-01 21:28 | NUR ---
RESIDUAL CHECKED - 0, DUE GT MEDICATIONS GIVEN.
[2016-09-01] MEDS: LINEZOLID 600 MG TAB GT SCH (21:29)
[2016-09-01] MEDS ORDERED: BISACODYL 10 MG SUPP RC PRN (22:05)
[2016-09-02] VITALS: BP 116/64
[2016-09-02] MEDS ORDERED: PIPER/TAZO 3.375GM/D5W PREMIX 50 ML IV SCH
--- NOTE | 2016-09-02 | NUR ---
HAD MODERATE LOOSE BM, CLEANSED AND MADE COMFORTABLE IN BED.
[2016-09-02] MEDS: ALBUTEROL SULFATE/IPRATROPIU 3 ML SOL IH PRN (03:34)
--- NOTE | 2016-09-02 03:35 | NUR ---
WITH COUGHING, RT GAVE BREATHING TREATMENT.
--- NOTE | 2016-09-02 04:42 | NUR ---
SUCTIONING DONE, ABLE TO OBTAINED MODERATE AMOUNT OF WHITISH PHLEGM
--- NOTE | 2016-09-02 06:15 | NUR ---
COUGHING, SUCTIONING DONE. MODERATE AMOUNT OF PHLEGM WITH APPROX 150 ML OF BROWNISH LIQUID COMES OUT WITH THE PHLEGM. RESIDUAL CHECKED - 0, STOPPED FEEDING.
--- NOTE | 2016-09-02 06:25 | NUR ---
HAD SEIZURE LASTING FOR 20 SECONDS. SAFETY MAINTAINED.
[2016-09-02 06:29] LABS: HEMATOCRIT 38.3 % (36-52); HEMOGLOBIN 12.7 g/dL (12.0-18.0); MEAN CORPUSCULAR HEMOGLOBIN 33 pg (27-31); MEAN CORPUSCULAR HGB CONC 33 g/dL (33-37); MEAN CORPUSCULAR VOLUME 98 fL (80-94); PLATELET COUNT (AUTO) 238 K/uL (140-450); RED CELL DISTRIBUTION WIDTH 12.3 % (11.6-13.7); WHITE BLOOD COUNT (AUTO) 28.7 K/uL (4.8-10.8)
--- NOTE | 2016-09-02 06:30 | NUR ---
BP CHECKED - T - 99.0, BP - 123/77, HR - 140, 02 SAT - 93%. BLOOD SUGAR CHECKED - 161. MEDICATED WITH ATIVAN ORDERED BY AG MACEDO.
[2016-09-02 06:46] LABS: ANION GAP 13.4 (8-16); CALCIUM 7.9 mg/dL (8.5-10.1); CARBON DIOXIDE 24.7 mmol/L (21-32); CREATININE 0.7 mg/dL (0.6-1.3); POTASSIUM 3.1 mmol/L (3.5-5.1)
[2016-09-02] MEDS: NACL 0.9% 1,000 ML IV SCH ×3 (06:54→14:44)
[2016-09-02] MEDS: LORazepam 2 MG/ML VIAL IVP PRN (06:55)
[2016-09-02 07:01] LABS: MAGNESIUM 1.8 mg/dL (1.8-2.4)
[2016-09-02 07:09] LABS: BAND % (MANUAL) 12 % (0-8); LYMPHOCYTES % (MANUAL) 5 % (20-46); MONOCYTES % (MANUAL) 5 % (5-12); NEUTROPHILS % (MANUAL) 78 (43-65)
--- NOTE | 2016-09-02 07:15 | NUR ---
RESTING SLEEPING IN BED, WILL ENDORSED TO AM NURSE FOR MONITORING OF COUGHING, GT FEEDING AND SEIZURE. CONDITION REMAIN STABLE.
--- NOTE | 2016-09-02 07:16 | NUR ---
PT AWAKE AND RESPONSIVE, NO SIGNS OF ACUTE DISTRESS. WITH O2 AT 3L/MIN VIA NC, HOB ELEVATED 30 DEGREES. SKIN IS WARM AND DRY. OFFLOAD TO PRESSURE AREAS, KEPT CLEAN AND DRY. WITH G TUBE INTACT AND PATENT. NO RESIDUAL. FLACC 0 ALL NEEDS ANTICIPATED, SAFETY PRECAUTIONS MAINTAINED. PADDED BILATERAL SIDE RAILS UP, BED WHEELS LOCKED. CALL LIGHT WITHIN REACH.
[2016-09-02 08:00] VITALS: BP 119/74
[2016-09-02] MEDS ORDERED: POTASSIUM PHOSPHATE 15 MM in NACL 0.9% 250 ML IV SCH (08:00)
[2016-09-02] MEDS: METOCLOPRAMIDE 10 MG/10 ML SYRP UDC GT SCH ×4 (08:42→20:44)
[2016-09-02] MEDS: POTASSIUM CHLORIDE 20% 40 MEQ/15 ML UDC GT SCH ×2 (08:42→12:25)
[2016-09-02] MEDS: LACTULOSE 20 GM/30 ML UDC GT SCH (08:43)
[2016-09-02] MEDS: LEVOTHYROXINE 0.05 MG TAB GT SCH (08:43)
[2016-09-02] MEDS: levETIRAcetam 100 MG/ML ORASYR GT SCH ×3 (08:43→16:16)
[2016-09-02] MEDS: GLYCOPYRROLATE 1 MG TAB GT SCH ×3 (08:43→16:16)
[2016-09-02] MEDS: metroNIDAZOLE 500 MG TAB GT SCH ×3 (08:43→16:16)
[2016-09-02] MEDS: TOPIRAMATE 25 MG TAB GT SCH ×2 (08:44→20:45)
[2016-09-02] MEDS: BENZTROPINE 1 MG TAB GT SCH ×2 (08:44→20:44)
[2016-09-02] MEDS: LINEZOLID 600 MG TAB GT SCH (08:44)
[2016-09-02] MEDS: MONTELUKAST SODIUM 10 MG TAB GT SCH (08:44)
[2016-09-02] MEDS: LACTOBACILLUS RHAMNOSUS GG 1 EACH CAP PO SCH (08:44)
[2016-09-02] MEDS: CHLORPHENIRAMINE 4 MG TAB GT SCH ×2 (08:44→20:43)
[2016-09-02] MEDS: Z-GUARD PASTE TP SCH ×2 (08:47→21:00)
[2016-09-02] MEDS: POTASSIUM CHLORIDE 40 MEQ, LIDOCAINE 1% 25 MG in NACL 0.9% 250 ML IV SCH (10:00)
--- NOTE | 2016-09-02 10:01 | NUR ---
HOLD Elena ARNOLD PER DR. BAUER, MADE AWARE. PT RECEIVED K DUR 40MEQ PO AND K PHOS IV. Addendum: 09/02/16 at 1715 by Wesly Gary RN HOLD Elena ARNOLD PER DR. BAUER MADE AWARE. PT RECEIVED POTASSIUM 40MEQ G TUBE AND K PHOS IV.
--- NOTE | 2016-09-02 11:52 | NUR ---
SS NOTE: PER VERO FROM [facility], NO ISO BED AVAILABLE PER BERNIE FROM [facility], NO ISO BED AVAILABLE PER PETEY FROM [facility] ([facility]), NO MALE BEDS AVAILABLE MESSAGE LEFT FOR MAYLIN IN ADMISSIONS AT [facility] MESSAGE LEFT FOR ADMISSIONS AT [facility] Addendum: 09/02/16 at 1215 by Evie Dan SS I RECEIVED A CALL FROM MAYLIN AT [facility]. SHE STATED THAT THEY DO NOT HAVE AN ISO BEDS AVAILABLE.
--- NOTE | 2016-09-02 12:31 | NUR ---
SS NOTE: PER KARL FROM [facility], NO ISO BEDS AVAILABLE PER KATE FROM [facility], NO ISO BEDS AVAILABLE ADDITIONAL SNF INQUIRIES SENT TO [facility] AND [facility]
--- NOTE | 2016-09-02 14:29 | NUR ---
RECEIVED NEW ORDERS FROM RESIDENT BAUER, NOTED AND CARRIED OUT.
[2016-09-02 16:00] VITALS: BP 101/65
--- NOTE | 2016-09-02 16:24 | NUR ---
SS NOTE: SENT ADDITIONAL SNF INQUIRIES TO: - [facility] - [facility] - [facility] - [facility] ([facility])
--- NOTE | 2016-09-02 19:30 | NUR ---
PT AWAKE AND RESPONSIVE, NO SIGNS OF ACUTE DISTRESS. ENDORSED TO ONCOMING DEHYDRATOR OPERATOR NURSE FOR CONTINUITY OF CARE.
--- NOTE | 2016-09-02 19:35 | NUR ---
RECEIVED PT IN STABLE CONDITION FROM AM NURSE. SLEEPING. WITH NO ACUTE DISTRESS NOTED. MED SURG PT. ON O22L/NC. ON CONTACT ISOLATION. HAS OCCASIONAL NON PRODUCTIVE COUGH. BEDREST. TO TURN Q2 HRS. GT FEEDING INFUSING WELL. BED ON LOW POSITION. SIDE RAILS ARE UP X2 AND PADDED FOR SZ PRECAUTION. FREQUENT ROUNDS NEEDED. WILL CONTINUE TO MONITOR.
--- NOTE | 2016-09-02 20:00 | NUR ---
MADE ROUNDS. CHECKED GT FEEDING. NO RESIDUAL NOTED.
--- NOTE | 2016-09-02 20:40 | NUR ---
MIRALAX NOT GIVEN . PT HAS DIARRHEA.
[2016-09-02] MEDS: POLYETHYLENE GLYCOL 17 GM/PKT GT SCH (20:45)
--- NOTE | 2016-09-02 22:15 | NUR ---
PAGED DR. GARDNER @[id number]. CALLED BACK. MADE AWARE ABOUT HR HAS BEEN ST 130-131, AND THE EPISODE OF SEIZURE EARLY TODAY. PT TO BE TRANSFER BACK TO TELE MONITOR.
[2016-09-02 23:00] VITALS: BP 104/63
[2016-09-02] MEDS: ONDANSETRON 4 MG/2 ML VIAL IVP PRN (23:14)
--- NOTE | 2016-09-02 23:14 | NUR ---
PT COUGHED /VOMITED MODERATE AMOUNT COFFEE GROUND LIQUID. ABDOMEN DISTENDED. HOLD FEEDING FOR NOW. ZOFRAN IVP GIVEN ORDERED. WILL CONTINUE TO MONITOR.
--- NOTE | 2016-09-03 03:10 | NUR ---
DR. GARDNER PAGED AGAIN FOR HR STILL ELEVATED AND ABDOMEN DISTENDED. HE SAID HE WILL ORDER KUB.
--- NOTE | 2016-09-03 04:00 | NUR ---
KUB DONE AT BEDSIDE. WILL FOLLOW UP RESULT.
[2016-09-03 04:07] VITALS: BP 107/78
[2016-09-03] MEDS: NACL 0.9% 1,000 ML IV SCH ×2 (04:28→06:07)
[2016-09-03 06:01] LABS: HEMATOCRIT 33.7 % (36-52); HEMOGLOBIN 11.3 g/dL (12.0-18.0); MEAN CORPUSCULAR HEMOGLOBIN 33 pg (27-31); MEAN CORPUSCULAR HGB CONC 33 g/dL (33-37); MEAN CORPUSCULAR VOLUME 100 fL (80-94); PLATELET COUNT (AUTO) 216 K/uL (140-450); RED BLOOD CELL COUNT(AUTO) 3.39 MIL/uL (4.20-6.10); RED CELL DISTRIBUTION WIDTH 12.5 % (11.6-13.7); WHITE BLOOD COUNT (AUTO) 26.1 K/uL (4.8-10.8)
[2016-09-03] MEDS: ONDANSETRON 4 MG/2 ML VIAL IVP PRN (06:25)
--- NOTE | 2016-09-03 06:25 | NUR ---
HAD ANOTHER EPISODE OF PROJECTILE VOMITING OF COFFEE GROUND EMESIS @200 ML. ZOFRAN IVP GIVEN ORDERED.
[2016-09-03 06:30] LABS: ANION GAP 10.9 (8-16); CARBON DIOXIDE 27.9 mmol/L (21-32); CREATININE 0.8 mg/dL (0.6-1.3); POTASSIUM 3.8 mmol/L (3.5-5.1)
[2016-09-03 06:38] LABS: PHOSPHORUS 2.4 mg/dL (2.5-4.9)
[2016-09-03 06:49] LABS: BAND % (MANUAL) 13 % (0-8); LYMPHOCYTES % (MANUAL) 3 % (20-46); MONOCYTES % (MANUAL) 3 % (5-12); NEUTROPHILS % (MANUAL) 81 (43-65)
[2016-09-03] MEDS: ALBUTEROL SULFATE/IPRATROPIU 3 ML SOL IH PRN (07:09)
--- NOTE | 2016-09-03 07:10 | NUR ---
SXN PT WITH YONKER ORALLY PT WITH MIN AMT OFF WHITE SECS
--- NOTE | 2016-09-03 07:46 | NUR ---
ENDORSED PT IN STABLE CONDITION TO AM NURSE FOR CONTINUITY OF CARE.
--- NOTE | 2016-09-03 07:48 | NUR ---
RECEIVED REPORT FROM NIGHT RN. PT RESTING IN BED. NONVERBAL,BUT EASILY AROUSABLE. ON O2 2L NC. IV SITE PATENT AND INTACT. G-TUBE SITE PATENT. FEEDING HELD DUE TO VOMITING. FLACC-0. CALL LIGHT WITHIN REACH. HOB 30. SAFETY MEASURES ENSURED. SEIZURE PRECAUTIONS IN PLACE. WILL CONTINUE TO MONITOR.
[2016-09-03 08:00] VITALS: BP 98/63
[2016-09-03] MEDS ORDERED: SODIUM PHOS / POTASSIUM PHOS 1 PKT PDR GT SCH (08:35)
[2016-09-03] MEDS: CHLORPHENIRAMINE 4 MG TAB GT SCH ×2 (09:00→21:32)
[2016-09-03] MEDS: LACTOBACILLUS RHAMNOSUS GG 1 EACH CAP PO SCH (09:00)
[2016-09-03] MEDS: MONTELUKAST SODIUM 10 MG TAB GT SCH (09:00)
[2016-09-03] MEDS: metroNIDAZOLE 500 MG TAB GT SCH ×3 (09:00→17:00)
[2016-09-03] MEDS: GLYCOPYRROLATE 1 MG TAB GT SCH ×3 (09:00→17:00)
[2016-09-03] MEDS: METOCLOPRAMIDE 10 MG/10 ML SYRP UDC GT SCH ×4 (09:00→21:31)
[2016-09-03] MEDS: LEVOTHYROXINE 0.05 MG TAB GT SCH (09:00)
[2016-09-03] MEDS: LACTULOSE 20 GM/30 ML UDC GT SCH (09:00)
[2016-09-03] MEDS: BENZTROPINE 1 MG TAB GT SCH ×2 (09:00→21:31)
[2016-09-03] MEDS: levETIRAcetam 100 MG/ML ORASYR GT SCH ×3 (09:08→17:34)
[2016-09-03] MEDS: TOPIRAMATE 25 MG TAB GT SCH ×2 (09:09→21:30)
[2016-09-03] MEDS: Z-GUARD PASTE TP SCH ×2 (09:11→21:32)
--- NOTE | 2016-09-03 09:11 | NUR ---
AM MEDICATIONS GIVEN WITH EDUCATION. PT UNABLE TO VERBALIZE UNDERSTANDING. PT TOLERATED WELL AT THIS TIME. NO RESIDUAL. FEEDING HELD DUE TO THROWING UP. DR. GILMAN MADE AWARE. STATES TO HOLD FEEDING AND HOLD ALL MEDS EXCEPT SEIZURE MEDICATIONS. NO S/S OF ACUTE DISTRESS. FLACC-0. WILL CONTINUE TO MONITOR.
--- NOTE | 2016-09-03 11:25 | NUR ---
SS NOTE: PER ZOË FROM [facility], NO ISO BEDS AVAILABLE PER JOSÉ FROM [facility], NO MALE BEDS AVAILABLE PER BARBARA FROM [facility], NO ISO BEDS AVAILABLE
[2016-09-03 12:00] VITALS: BP 92/56
[2016-09-03] MEDS ORDERED: FUROSEMIDE 20 MG/2 ML VIAL IVP SCH (13:00)
[2016-09-03] MEDS: PIPER/TAZO 3.375GM/D5W PREMIX 50 ML IV SCH ×3 (13:14→23:28)
--- NOTE | 2016-09-03 13:24 | NUR ---
09/03/16 RD FOLLOW-UP ASSESSMENT COMPLETED PLEASE REFER TO NUTRITION ASSESSMENT UNDER CARE ACTIVITY FOR ESTIMATED NUTRITIONAL NEEDS. 1. WHEN MEDICALLY FEASIBLE, RESUME EN SUPPORT - TF NUTREN PULMONARY TO START SLOW AT 30 ML/HR, ADVANCE 10 ML Q12H TO A GOAL RATE OF 60 ML/HR (PROVIDES 2160 KCAL, 97 G PROTEIN, 1126 ML FREE WATER) 2. IF EN SUPPORT NOT FEASIBLE, CONSIDER INITIATING PN SUPPORT BY DAY 7 (09/10/16) 3. RD TO FOLLOW-UP 2-3 DAYS; HIGH RISK WHIT MORRISSEY, BASSAM
--- NOTE | 2016-09-03 13:25 | NUR ---
DR. AGUIAR MADE AWARE OF PT'S BP. TUBE FEEDING CONTINUED TO BE HELD ALONG WITH ALL NON ANTICONVULSANT MEDICATIONS.
[2016-09-03] MEDS: DEXT 5% / NACL 0.45% 1,000 ML IV SCH (13:34)
[2016-09-03 16:00] VITALS: BP 89/57
--- NOTE | 2016-09-03 16:05 | NUR ---
PT RESTING IN BED. NO S/S OF ACUTE DISTRESS. WILL CONTINUE TO MONITOR.
--- NOTE | 2016-09-03 19:20 | NUR ---
ENDORSED PLAN OF CARE TO NIGHT RN. PT REMAINS STABLE.
--- NOTE | 2016-09-03 19:21 | NUR ---
RECEIVED REPORT FROM MORNING SHIFT RN AT BEDSIDE, PT IS DROWSY, APHASIC, UNABLE TO FOLLOW COMMANDS AND MAKE NEEDS KNOWN, VSS, FLACC 0, NO S/S OF SOB/DISTRESS, CRACKLES LUNG SOUND, ON O2 AT 2L VIA NC. NO S/S OF CHEST PAIN, SR ON TELE MONITOR. SOFT ABDOMEN WITH ACTIVE BOWEL SOUNDS, GT IN PLACE, CURRENTLY FEEDING ON HOLD DUE TO VOMITED COFFEE BROWN COLORED EMESIS THIS MORNING AND MD AWARE PER REPORT, SOLER CATHETER IN PLACE WITH CLEAR YELLOW URINE NOTED, FLACCID BLE NOTED, BEDBOUND STATUS, AFEBRILE, SKIN IS WARM AND DRY TO TOUCH, NON-INTACT (SEE WOUND ASSESSMENT), IV SITE TO LEFT HAND 20GA, RUNNING NS AT 75ML/HR. PLACED PATIENT AT A COMFORT POSITION, SEIZURE PRECAUTION, ASPIRATION PRECAUTION, AND SAFETY PRECAUTION IN PLACE, CALL LIGHT WITHIN REACH, WILL CONTINUE TO MONITOR.
[2016-09-03 20:00] VITALS: BP 88/54
--- NOTE | 2016-09-03 20:20 | NUR ---
PT ASLEEP, NO DISTRESS/SOB/WHEEZING NOTED AT THIS TIME. NO INDICATON FOR HHN PRN TX.
--- NOTE | 2016-09-03 21:00 | NUR ---
DR. LOVE CAME IN TO EVALUATE PT AT BEDSIDE, NEW ORDER OBTAINED AND CARRIED OUT.
[2016-09-03] MEDS: POLYETHYLENE GLYCOL 17 GM/PKT GT SCH (21:30)
[2016-09-03] MEDS: metroNIDAZOLE 500 MG/NS PREMIX 100 ML IV SCH (21:32)
[2016-09-03] MEDS: VANCOMYCIN 500 MG VIAL PO SCH (23:29)
[2016-09-03] MEDS ORDERED: WATER STERILE 20 ML MC ONE (23:31)
[2016-09-04] VITALS: BP 92/56
--- NOTE | 2016-09-04 | NUR ---
PT IS ASLEEP IN BED, VSS, NO S/S OF DISTRESS, WILL CONTINUE TO MONITOR.
[2016-09-04 04:00] VITALS: BP 94/61
--- NOTE | 2016-09-04 04:00 | NUR ---
NO CHANGE OF CONDITION AT THIS TIME, VSS. FLACC 0, POSITION CHANGED FOR OFF LOAD PRESSURE.
[2016-09-04] MEDS: DEXT 5% / NACL 0.45% 1,000 ML IV SCH ×2 (04:30→15:50)
[2016-09-04] MEDS: PIPER/TAZO 3.375GM/D5W PREMIX 50 ML IV SCH ×3 (05:04→17:02)
[2016-09-04] MEDS: METOCLOPRAMIDE 10 MG/2 ML INJ VIAL IVP SCH ×3 (05:05→20:31)
[2016-09-04] MEDS: metroNIDAZOLE 500 MG/NS PREMIX 100 ML IV SCH ×3 (05:05→20:45)
[2016-09-04] MEDS: VANCOMYCIN 500 MG VIAL PO SCH ×3 (05:05→17:04)
[2016-09-04 07:05] LABS: HEMATOCRIT 27.9 % (36-52); HEMOGLOBIN 9.2 g/dL (12.0-18.0); MEAN CORPUSCULAR HEMOGLOBIN 32 pg (27-31); MEAN CORPUSCULAR HGB CONC 33 g/dL (33-37); MEAN CORPUSCULAR VOLUME 98 fL (80-94); PLATELET COUNT (AUTO) 219 K/uL (140-450); RED BLOOD CELL COUNT(AUTO) 2.85 MIL/uL (4.20-6.10); RED CELL DISTRIBUTION WIDTH 12.6 % (11.6-13.7); WHITE BLOOD COUNT (AUTO) 19.4 K/uL (4.8-10.8)
--- NOTE | 2016-09-04 07:09 | NUR ---
REPORT GIVEN TO MORNING SHIFT NURSE FOR CONTINUE OF CARE, PT IS IN STABLE CONDITION AT THIS TIME.
--- NOTE | 2016-09-04 07:15 | NUR ---
RECEIVED PATIENT FROM [facility] RN FOR CONTINUITY OF CARE. PATIENT IS AWAKE, NON VERBAL, MUMBLES WORDS AT TIMES AND UNABLE TO FOLLOW SIMPLE COMMANDS. SKIN WARM TO TOUCH WNL, TOENAILS WNL, NO EDEMA, WITH HAIR GROWTH AND +2 BILATERAL PEDAL PULSES. ON 02 PER NASAL CANNULA. URINE AND BOWEL INCONTINENT. BILATERAL BUTTOCKS PARTIAL THICKNESS PRESSURE INJURY NOTED. LUQ G TUBE PATENT AND INTACT, CLAMPED AT THIS TIME. CALL LIGHT WITHIN REACH. WILL CONTINUE TO MONITOR PATIENT.
[2016-09-04 07:31] LABS: ANION GAP 10.8 (8-16); CARBON DIOXIDE 26.8 mmol/L (21-32); CREATININE 0.7 mg/dL (0.6-1.3); POTASSIUM 3.6 mmol/L (3.5-5.1)
[2016-09-04 07:33] LABS: MAGNESIUM 1.9 mg/dL (1.8-2.4); PHOSPHORUS 2.2 mg/dL (2.5-4.9)
[2016-09-04 07:47] LABS: BAND % (MANUAL) 8 % (0-8); LYMPHOCYTES % (MANUAL) 6 % (20-46); MONOCYTES % (MANUAL) 2 % (5-12); NEUTROPHILS % (MANUAL) 84 (43-65)
[2016-09-04 08:06] VITALS: BP 137/80
[2016-09-04] MEDS: POLYETHYLENE GLYCOL 17 GM/PKT PO SCH (09:00)
[2016-09-04] MEDS: Z-GUARD PASTE TP SCH ×2 (09:48→22:29)
[2016-09-04] MEDS: PANTOPRAZOLE 40 MG INJ VIAL IVP SCH (09:55)
[2016-09-04] MEDS: levETIRAcetam 100 MG/ML ORASYR GT SCH ×3 (09:56→17:01)
[2016-09-04] MEDS: CHLORPHENIRAMINE 4 MG TAB GT SCH ×2 (09:57→20:31)
[2016-09-04] MEDS: MONTELUKAST SODIUM 10 MG TAB GT SCH (09:57)
[2016-09-04] MEDS: LACTOBACILLUS RHAMNOSUS GG 1 EACH CAP PO SCH (09:57)
[2016-09-04] MEDS: BENZTROPINE 1 MG TAB GT SCH ×2 (09:57→20:32)
[2016-09-04] MEDS: TOPIRAMATE 25 MG TAB GT SCH ×2 (09:57→20:31)
[2016-09-04] MEDS: LEVOTHYROXINE 0.05 MG TAB GT SCH (09:57)
--- NOTE | 2016-09-04 10:00 | NUR ---
AM MEDICATIONS GIVEN WITH EDUCATION. PT UNABLE TO VERBALIZE UNDERSTANDING. PT TOLERATED WELL.
[2016-09-04] MEDS ORDERED: POTASSIUM PHOSPHATE 15 MM in NACL 0.9% 250 ML IV SCH (11:00)
--- NOTE | 2016-09-04 11:48 | NUR ---
Social Service Note: Per Joey from [facility] , no isolation beds available at this time, stated they might have some possibly on Tuesday09/06/16. Per Crystal from [facility] , they do not have any isolation beds available at this time.
[2016-09-04 12:00] VITALS: BP 98/57
[2016-09-04 16:00] VITALS: BP 88/62
--- NOTE | 2016-09-04 19:15 | NUR ---
REPORT GIVEN TO NOC RN FOR CONTINUITY OF CARE. PATIENT IN STABLE CONDITION.
--- NOTE | 2016-09-04 19:16 | NUR ---
RECEIVED REPORT, ASSUMED CARE. PT AOX1. RESPIRATION EVEN AND UNLABORED,NO SOB,NO S/S OF RESPIRATORY DISTRESS AT THIS TIME. NO FACIAL GRIMACING OR MOANING INDICATING PAIN. IV ACCESS TO RT FA, GAUGE 22, INTACT AND PATENT WITH NO S/S OF INFILTRATION. INFUSING D5 1/2NS @ 75ML/HR. GT IN PLACE, INTACT AND PATENT. REPOSITIONED FOR COMFORT AND ON OFF LOAD. CONTINUE TO MONITOR FOR DIARRHEA AND VOMITING, NO EPISODE AT THIS TIME. EDUCATION PROVIDED RE: SAFETY AD FALL PREVENTION. PT UNABLE TO VERBALIZE UNDERSTANDING DUE TO MENTAL STATUS. ALL NEEDS ANTICIPATED. KEPT CLEAN AND DRY AT ALL TIMES. CALL LIGHT WITHIN EASY REACH. WILL CONTINUE TO MONITOR.
[2016-09-04 20:00] VITALS: BP 92/65
[2016-09-04] MEDS: LINEZOLID 600 MG TAB GT SCH (20:32)
--- NOTE | 2016-09-04 20:45 | NUR ---
GT IN PLACE, NO RESIDUAL NOTED AT THIS TIME. ALL DUE MEDS GIVEN VIA G-TUBE ORDERED EXCEPT IV FLAGYL. NO ADVERSE REACTION. KEPT ON HIGH HOOD'S POSITION TO PREVENT FROM VOMITING. ALL NEEDS ANTICIPATED. KEPT CLEAN AND DRY. CONTINUE ON Q2H TURNING FOR OFF LOAD PRESSURE. WILL CONTINUE TO MONITOR.
--- NOTE | 2016-09-04 23:00 | NUR ---
ROUTINE ROUNDS, PT SLEEPING AT THIS TIME WITH REGULAR BREATHING PATTERN. NO S/S OF RESPIRATORY DISTRESS, NO VOMITING OR DIARRHEA AT THIS TIME. WILL CONTINUE TO MONITOR.
[2016-09-05] VITALS: BP 105/68
[2016-09-05] MEDS: PIPER/TAZO 3.375GM/D5W PREMIX 50 ML IV SCH ×4 (00:02→17:05)
[2016-09-05] MEDS: VANCOMYCIN 500 MG VIAL PO SCH ×4 (00:03→17:06)
--- NOTE | 2016-09-05 00:20 | NUR ---
ROUTINE ROUNDS, PT SOUND AWAKE, INTERMITTENTLY YELLING, NONSENSICALLY LOUD. NO S/S OF RESPIRATORY DISTRESS AT THIS TIME. DIAPER CHANGED BY DIRECTOR OF LEARNING. KEPT PT CLEAN AND DRY AT ALL TIMES. WILL CONTINUE TO MONITOR.
[2016-09-05] MEDS: LORazepam 2 MG/ML VIAL IVP PRN ×2 (01:54→23:07)
--- NOTE | 2016-09-05 01:54 | NUR ---
PT AWAKE, RESTLESS AND ANXIOUS AT THIS TIME EVIDENCED BY KICKING THE PILLOWS, CONSTANTLY FIDGETING IN BED, CONSTANTLY TAKING OFF THE NASAL CANNULA. ATIVAN 1MG IVP GIVEN. WILL CONTINUE TO MONITOR AND REASSESS FOR EFFECTIVENESS.
--- NOTE | 2016-09-05 03:30 | NUR ---
ROUTINE ROUNDS, PT AWAKE BUT MORE CALMER AT THIS TIME. NO FACIAL GRIMACING OR MOANING INDICATING PAIN.BED IN LOWEST POSITION. WILL CONTINUE TO MONITOR.
[2016-09-05 04:00] VITALS: BP 92/51
[2016-09-05] MEDS: DEXT 5% / NACL 0.45% 1,000 ML IV SCH ×2 (05:10→18:57)
[2016-09-05] MEDS: metroNIDAZOLE 500 MG/NS PREMIX 100 ML IV SCH ×3 (05:30→21:00)
[2016-09-05] MEDS: METOCLOPRAMIDE 10 MG/2 ML INJ VIAL IVP SCH ×3 (05:30→21:00)
[2016-09-05 07:23] LABS: ANION GAP 7.7 (8-16); CALCIUM 7.1 mg/dL (8.5-10.1); CARBON DIOXIDE 30.4 mmol/L (21-32); CREATININE 0.7 mg/dL (0.6-1.3); POTASSIUM 3.1 mmol/L (3.5-5.1)
[2016-09-05 07:30] LABS: HEMATOCRIT 27.8 % (36-52); HEMOGLOBIN 9.1 g/dL (12.0-18.0); MEAN CORPUSCULAR HEMOGLOBIN 32 pg (27-31); MEAN CORPUSCULAR HGB CONC 33 g/dL (33-37); MEAN CORPUSCULAR VOLUME 99 fL (80-94); PLATELET COUNT (AUTO) 247 K/uL (140-450); RED BLOOD CELL COUNT(AUTO) 2.82 MIL/uL (4.20-6.10); RED CELL DISTRIBUTION WIDTH 12.6 % (11.6-13.7); WHITE BLOOD COUNT (AUTO) 15.7 K/uL (4.8-10.8)
--- NOTE | 2016-09-05 07:30 | NUR ---
PT AWAKE AND RESPONSIVE, APHASIC. RESPIRATION EVEN AND UNLABORED,NO SOB,NO S/S RESPIRATORY DISTRESS. PT HAD 2 SOFT BM. NO VOMITING THROUGHOUT THE SHIFT. KEPT CLEAN AND DRY. NO ACUTE CHANGES NOTED. ENDORSED TO NEXT SHIFT FOR CONTINUITY OF CARE.
[2016-09-05 07:53] LABS: BAND % (MANUAL) 11 % (0-8); LYMPHOCYTES % (MANUAL) 18 % (20-46); MONOCYTES % (MANUAL) 5 % (5-12); NEUTROPHILS % (MANUAL) 66 (43-65)
[2016-09-05 08:00] VITALS: BP 112/60
[2016-09-05] MEDS ORDERED: guaiFENesin 20 MG/ML UDC GT PRN (08:15)
[2016-09-05] MEDS: POLYETHYLENE GLYCOL 17 GM/PKT PO SCH (09:00)
[2016-09-05] MEDS ORDERED: VANCOMYCIN PER PHARMACY MC SCH (09:00)
--- NOTE | 2016-09-05 09:30 | NUR ---
AM MEDS GIVEN, PATIENT TOLERATED PROCEDURE WELL.
[2016-09-05] MEDS: LINEZOLID 600 MG TAB GT SCH ×2 (09:47→20:59)
[2016-09-05] MEDS: MONTELUKAST SODIUM 10 MG TAB GT SCH (09:47)
[2016-09-05] MEDS: LEVOTHYROXINE 0.05 MG TAB GT SCH (09:48)
[2016-09-05] MEDS: LACTOBACILLUS RHAMNOSUS GG 1 EACH CAP PO SCH (09:48)
[2016-09-05] MEDS: TOPIRAMATE 25 MG TAB GT SCH ×2 (09:48→20:59)
[2016-09-05] MEDS: PANTOPRAZOLE 40 MG INJ VIAL IVP SCH (09:58)
[2016-09-05] MEDS: CHLORPHENIRAMINE 4 MG TAB GT SCH ×2 (09:59→20:58)
[2016-09-05] MEDS: BENZTROPINE 1 MG TAB GT SCH ×2 (09:59→20:59)
[2016-09-05] MEDS: levETIRAcetam 100 MG/ML ORASYR GT SCH ×3 (10:00→17:05)
--- NOTE | 2016-09-05 11:00 | NUR ---
ROUNDED ON PATIENT. ASLEEP AT THIS TIME IN STABLE CONDITION. CALL LIGHT WITHIN REACH.
[2016-09-05 11:39] VITALS: BP 96/60
[2016-09-05] MEDS: Z-GUARD PASTE TP SCH ×2 (11:39→21:44)
--- NOTE | 2016-09-05 12:03 | NUR ---
RECEIVED PATIENT FROM NIGHT NURSE FOR CONTINUITY OF CARE. PATIENT IS AWAKE, NON VERBAL, MUMBLES WORDS AT TIMES. SKIN WARM TO TOUCH WNL, TOENAILS WNL, NO EDEMA, WITH HAIR GROWTH AND +2 BILATERAL PEDAL PULSES. RIGHT FA PERIPHERAL IV PATENT AND INTACT. URINE AND BOWEL CONTINENT, SOFT BLACK GREENISH STOOLS NOTED IN MODERATE AMOUNT. LUQ G TUBE PATENT AND INTACT, CLAMPED AT THIS TIME. NO RESIDUAL NOTED. CALL LIGHT WITH IN REACH. WILL CONTINUE TO MONITOR PATIENT.
[2016-09-05 16:00] VITALS: BP 95/59
--- NOTE | 2016-09-05 16:22 | NUR ---
RESIDENT PHYSICIAN, DR. RENDON IS AWARE OF POTASSIUM 3.1.
[2016-09-05] MEDS ORDERED: KCL 20 MEQ/WATER INJ PREMIX 100 ML IV ONE (16:35)
[2016-09-05] MEDS ORDERED: KCL 20 MEQ/WATER INJ PREMIX 100 ML IV SCH (16:50)
--- NOTE | 2016-09-05 19:16 | NUR ---
REPORT GIVEN TO NIGHT RN FOR CONTINUITY OF CARE. PATIENT IN STABLE CONDITION.
--- NOTE | 2016-09-05 19:18 | NUR ---
RECEIVED REPORT, ASSUMED CARE. SLEEPING AT THIS TIME. RESPIRATION EVEN AND UNLABORED,NO SOB,NO S/S OF RESPIRATORY DISTRESS AT THIS TIME. NO FACIAL GRIMACING OR MOANING INDICATING PAIN. IV ACCESS TO LT HAND GAUGE 22, INTACT AND PATENT WITH NO S/S OF INFILTRATION. INFUSING D5 1/2NS @ 75ML/HR. GT IN PLACE, INTACT AND PATENT. REPOSITIONED FOR COMFORT. EDUCATION PROVIDED RE: SAFETY AD FALL PREVENTION. PT UNABLE TO VERBALIZE UNDERSTANDING DUE TO MENTAL STATUS. ALL NEEDS ANTICIPATED. KEPT CLEAN AND DRY AT ALL TIMES. CALL LIGHT WITHIN EASY REACH. WILL CONTINUE TO MONITOR.
[2016-09-05 20:00] VITALS: BP 104/68
--- NOTE | 2016-09-05 20:00 | NUR ---
GT INTACT AND PATENT, NO RESIDUAL AT THIS TIME.
--- NOTE | 2016-09-05 21:00 | NUR ---
ALL DUE MEDS ADMINISTERED VIA GT. PT TOLERATED WELL. STARTED GTF FIBERSOURCE HN AT 30ML/HR. WATER SET TO FLUSH AT 50ML/HR Q6H. WILL MONITOR FOR RESIDUAL AFTER AND HR. ABDOMEN NON DISTENDED. NO VOMITING, PT TOLERATES WELL. WILL CONTINUE TO MONITOR.
[2016-09-05] MEDS ORDERED: FUROSEMIDE 40 MG/4 ML VIAL IVP SCH (21:20)
[2016-09-06] VITALS: BP 102/66
[2016-09-06] MEDS: PIPER/TAZO 3.375GM/D5W PREMIX 50 ML IV SCH ×5 (00:38→23:58)
[2016-09-06] MEDS: VANCOMYCIN 500 MG VIAL PO SCH ×5 (00:39→23:58)
[2016-09-06 04:00] VITALS: BP 97/62
[2016-09-06] MEDS: METOCLOPRAMIDE 10 MG/2 ML INJ VIAL IVP SCH ×3 (04:36→20:58)
[2016-09-06] MEDS: metroNIDAZOLE 500 MG/NS PREMIX 100 ML IV SCH ×3 (04:36→20:58)
--- NOTE | 2016-09-06 07:20 | NUR ---
PT SLEEPING BUT EASY TO AROUSE. NO S/S OF RESPIRATORY DISTRESS. PT HAD NO EPISODE OF VOMITING THROUGHOUT THE SHIFT. HOWEVER, PT HAD 4 EPISODE OF DIARRHEA. PT IN STABLE CONDITION. ENDORSED TO NEXT SHIFT FOR CONTINUITY OF CARE.
--- NOTE | 2016-09-06 07:21 | NUR ---
PT AWAKE AND ALERT, NO SIGNS OF ACUTE DISTRESS. BOWEL SOUNDS ACTIVE IN ALL 4 QUADRANTS, BOWEL AND BLADDER INCONTINENCE. GASTROSTOMY TUBE IN PLACE, RESIDUAL CURRENTLY LESS THAN 200ML. PRESSURE ULCER ON BILATERAL BUTTOCKS, JAIME. BEDBOUND. IV PATENT AND ASYMPTOMATIC. FLACC SCORE IS 0. RE-ORIENTED PATIENT TO UNIT AND HOSPITAL, PT UNABLE TO COMPREHEND, NEEDS FREQUENT REINFORCEMENT. BED IN LOW POSITION WITH BILATERAL HALF SIDE RAILS UP, CALL LIGHT WITHIN REACH.
[2016-09-06 08:00] VITALS: BP 102/64
--- NOTE | 2016-09-06 08:02 | NUR ---
ASSESSMENT DONE PATIENT PRESENTING WITH INCREASED SOB CXR DATED 09/02/2016 REVIEWED HHN PRN THERAPY GIVEN AT THIS TIME
[2016-09-06] MEDS: ALBUTEROL 0.083% 2.5 MG/3 ML NEBU INH PRN ×2 (08:03→14:18)
[2016-09-06] MEDS: levETIRAcetam 100 MG/ML ORASYR GT SCH ×3 (08:58→16:51)
[2016-09-06] MEDS: PANTOPRAZOLE 40 MG INJ VIAL IVP SCH (08:59)
[2016-09-06] MEDS: LACTOBACILLUS RHAMNOSUS GG 1 EACH CAP PO SCH (08:59)
[2016-09-06] MEDS: CHLORPHENIRAMINE 4 MG TAB GT SCH ×2 (08:59→20:57)
[2016-09-06] MEDS: BENZTROPINE 1 MG TAB GT SCH ×2 (08:59→20:57)
[2016-09-06] MEDS: POTASSIUM CHLORIDE 20% 40 MEQ/15 ML UDC GT SCH (08:59)
[2016-09-06] MEDS: LEVOTHYROXINE 0.05 MG TAB GT SCH (09:00)
[2016-09-06] MEDS: LINEZOLID 600 MG TAB GT SCH ×2 (09:00→20:58)
[2016-09-06] MEDS: PHARMACY COMMENTS MC SCH (09:00)
[2016-09-06] MEDS: MONTELUKAST SODIUM 10 MG TAB GT SCH (09:01)
[2016-09-06] MEDS: TOPIRAMATE 25 MG TAB GT SCH ×2 (09:24→20:58)
[2016-09-06] MEDS: Z-GUARD PASTE TP SCH ×2 (09:33→21:14)
[2016-09-06 12:00] VITALS: BP 98/60
--- NOTE | 2016-09-06 14:35 | NUR ---
09/06/16 RD FOLLOW-UP ASSESSMENT COMPLETED PLEASE REFER TO NUTRITION ASSESSMENT UNDER CARE ACTIVITY FOR ESTIMATED NUTRITIONAL NEEDS. 1. CONTINUE EN SUPPORT - FIBERSOURCE HN AT 30 ML/HR, ADVANCE 10 ML Q8H TO A GOAL RATE OF 60 ML/HR (PROVIDES 1728 KCAL, 77 G PROTEIN, 1163 ML FREE WATER - MEETS 97% KCAL + 86% PROTEIN ESTIMATED NEEDS) 2. ADD PROBIOTIC 1X/DAILY VIA G-TUBE 3. RD TO FOLLOW-UP 2-3 DAYS; HIGH RISK WHIT BROWN RD Addendum: 09/07/16 at [address] ERROR 1. CONTINUE EN SUPPORT - FIBERSOURCE HN AT 30 ML/HR, ADVANCE 10 ML Q8H TO A GOAL RATE OF 60 ML/HR (PROVIDES 1728 KCAL, 77 G PROTEIN, 1163 ML FREE WATER - MEETS 97% KCAL + 86% PROTEIN ESTIMATED NEEDS) 2. RD TO FOLLOW-UP 2-3 DAYS; HIGH RISK WHIT BROWN RD
--- NOTE | 2016-09-06 15:19 | NUR ---
SS NOTE: PER COURTNEY FROM [facility], NO ISO INTERMEDIATE BEDS AVAILABLE PER KIKA FROM [facility], NO ISO INTERMEDIATE BEDS AVAILABLE PER KIM FROM [facility], NO ISO INTERMEDIATE BEDS AVAILABLE PER KIKA FROM [facility], NO ISO INTERMEDIATE BEDS AVAILABLE PER VERONICA FROM [facility], NO ISO INTERMEDIATE BEDS AVAILABLE Addendum: 09/06/16 at 1632 by Evie Dan SS PER BELEM FROM [facility], NO ISO BEDS AVAILABLE
[2016-09-06 16:00] VITALS: BP 98/60
--- NOTE | 2016-09-06 18:40 | NUR ---
PT RESTLESS AND PULLED OUT IV. CLEANED PATIENT AND RE-POSITIONED. BLOOD PRESSURE WAS 94/62, UNABLE TO GIVE ATIVAN DUE TO LOW BLOOD PRESSURE. PUT MITTENS ON PATIENT, WILL CONTINUE TO MONITOR.
--- NOTE | 2016-09-06 19:24 | NUR ---
PT AWAKE AND ALERT, NO SIGNS OF ACUTE DISTRESS. ENDORSED TO MICROWAVE REMOTE SENSING SCIENTIST RN FOR CONTINUITY OF CARE.
--- NOTE | 2016-09-06 19:25 | NUR ---
RECEIVED PT IN STABLE CONDITION FROM AM NURSE. AWAKE, BUT CONFUSED. ON TELE MONITOR. BEDBOUND. WITH IVF INFUSING ON THE LT HAND #24. HAS GT FEEDING ,TOLERATING WELL AT THIS TIME. WITH SCD ON BLE . O22L/NC . O2 SAT 99% . WITH NUPUR BUTTOCKS EXCORIATION. BED ON LOW POSITION. FREQUENT ROUNDS NEEDED. SIDE RAILS ARE PADDED FOR SEIZURE PRECAUTIONS. CALL LIGHT PLACED WITHIN REACH. WILL CONTINUE TO MONITOR.
[2016-09-06 20:00] VITALS: BP 113/75
[2016-09-06] MEDS: DEXT 5% / NACL 0.45% 1,000 ML IV SCH (20:00)
--- NOTE | 2016-09-06 20:03 | NUR ---
IV ACCESS ON THE LT HAND INFILTRATED. DISCONTINUED, STARTED A NEW IV ACCESS ON THE RT HAND #22. CLEAR AND PATENT.
--- NOTE | 2016-09-06 22:00 | NUR ---
HAD A SMALL LIQUID STOOL,GREENISH IN COLOR. CLEANED AND KEPT DRY. AND REPOSITION FOR COMFORT.
[2016-09-07 00:09] VITALS: BP 95/60
--- NOTE | 2016-09-07 00:30 | NUR ---
PT REPOSITIONED FOR COMFORT . NO S/S OF ANY DISTRESS NOTED.
--- NOTE | 2016-09-07 02:00 | NUR ---
AWAKE, BUT CONFUSED. REPOSITIONED FOR COMFORT.
[2016-09-07 04:00] VITALS: BP 102/58
[2016-09-07] MEDS: metroNIDAZOLE 500 MG/NS PREMIX 100 ML IV SCH ×2 (04:31→12:43)
[2016-09-07] MEDS: METOCLOPRAMIDE 10 MG/2 ML INJ VIAL IVP SCH ×3 (04:31→22:31)
--- NOTE | 2016-09-07 05:00 | NUR ---
PT HAD X3 LOOSE BM. NUPUR BUTTOCKS WITH PRESSURE ULCER. CLEANED AND APPLIED WITH Z GUARD.
[2016-09-07] MEDS: PIPER/TAZO 3.375GM/D5W PREMIX 50 ML IV SCH ×2 (05:37→12:04)
[2016-09-07] MEDS: VANCOMYCIN 500 MG VIAL PO SCH ×3 (05:44→17:12)
--- NOTE | 2016-09-07 06:45 | NUR ---
PT IN BED. NO ACUTE DISTRESS NOTED, ON O22L/NC. WITH OCCASIONAL NON PRODUCTIVE COUGH.
--- NOTE | 2016-09-07 07:13 | NUR ---
ENDORSED PT IN STABLE CONDITION TO AM NURSE FOR [id number] OF CARE.
--- NOTE | 2016-09-07 07:14 | NUR ---
PT AWAKE AND ALERT, NO SIGNS OF ACUTE DISTRESS. BOWEL SOUNDS ACTIVE IN ALL 4 QUADRANTS. BOWEL AND BLADDER INCONTINENCE. GASTROSTOMY TUBE IN LUQ, PATENT AND INFUSING AT 30ML PER HOUR FIBERSOURCE. PRESSURE ULCER ON BILATERAL BUTTOCKS, DIRECTOR OF WORKFORCE DEVELOPMENT. BEDBOUND. IV PATENT AND ASYMPTOMATIC. RE-ORIENTED PATIENT TO HOSPITAL AND TO UNIT, PT UNABLE TO COMPREHEND, NEEDS RE-INFORCEMENT. SOFT MITTENS ON PATIENT FOR SAFETY. BED IN LOW POSITION WITH BILATERAL HALF SIDE RAILS UP, CALL LIGHT WITHIN REACH.
[2016-09-07 07:45] VITALS: BP 114/60
[2016-09-07] MEDS: levETIRAcetam 100 MG/ML ORASYR GT SCH ×3 (08:51→17:06)
[2016-09-07] MEDS: POTASSIUM CHLORIDE 20% 40 MEQ/15 ML UDC GT SCH (08:51)
[2016-09-07] MEDS: CHLORPHENIRAMINE 4 MG TAB GT SCH ×2 (08:52→22:32)
[2016-09-07] MEDS: PANTOPRAZOLE 40 MG INJ VIAL IVP SCH (08:52)
[2016-09-07] MEDS: LACTOBACILLUS RHAMNOSUS GG 1 EACH CAP GT SCH (08:52)
[2016-09-07] MEDS: MONTELUKAST SODIUM 10 MG TAB GT SCH (08:52)
[2016-09-07] MEDS: LINEZOLID 600 MG TAB GT SCH (08:53)
[2016-09-07] MEDS: BENZTROPINE 1 MG TAB GT SCH ×2 (08:53→22:32)
[2016-09-07] MEDS: LEVOTHYROXINE 0.05 MG TAB GT SCH (08:53)
[2016-09-07] MEDS: TOPIRAMATE 25 MG TAB GT SCH ×2 (08:53→22:31)
[2016-09-07] MEDS: PHARMACY COMMENTS MC SCH (09:00)
[2016-09-07] MEDS: Z-GUARD PASTE TP SCH ×2 (09:00→21:00)
--- NOTE | 2016-09-07 10:23 | NUR ---
RECEIVED NEW ORDERS FOR AM LABS, NOTED, WILL CARRY OUT.
--- NOTE | 2016-09-07 10:35 | NUR ---
RECEIVED PT FROM CARMEL LUONG PT OPEN EYES NONVERBAL ON TELEMETRY SR, IV ON LEFT FA PATENT G TUBE IN PLACE ZERO RESIDUAL PT REPOSITIONED INITIAL ASSESSMENT DONE Addendum: 09/08/16 at 0217 by Salena Sampson RN THE DATE IS 09/07/16 AT 1933
--- NOTE | 2016-09-07 11:04 | NUR ---
SS NOTE: PER KATE FROM [facility], NO ISO BEDS AVAILABLE [place] [facility] NO [place] BEDS AVAILABLE PER VERO FROM [facility], NO ISO BEDS AVAILABLE Addendum: 09/07/16 at 1518 by Evie Dan SS PER COURTNEY FROM [facility], NO ISO BEDS AVAILABLE PER ANGEL FROM [facility], NO ISO BEDS AVAILABLE
[2016-09-07 12:00] VITALS: BP 101/67
[2016-09-07] MEDS ORDERED: LORazepam 2 MG/ML VIAL IVP PRN (14:05)
--- NOTE | 2016-09-07 14:59 | NUR ---
RECEIVED NEW ORDERS FROM DR BAUER, NOTED, WILL CARRY OUT.
[2016-09-07 16:00] VITALS: BP 95/62
--- NOTE | 2016-09-07 16:29 | NUR ---
SS NOTE: PER JUNE FROM [facility], NO ISO BEDS AVAILABLE PER KEENA FROM [facility], NO ISO BEDS AVAILABLE PER XIOMY FROM [facility], NO MALE BEDS AVAILABLE MESSAGE LEFT FOR SEKOU AT [facility] REGARDING ISO BED AVAILABILITY MESSAGE LEFT FOR BERNIE AT [facility] REGARDING BED AVAILABILITY
[2016-09-07] MEDS ORDERED: PIPER/TAZO 3.375GM/D5W PREMIX 50 ML IV SCH (18:00)
[2016-09-07] MEDS: DEXT 5% / NACL 0.45% 1,000 ML IV SCH (18:30)
--- NOTE | 2016-09-07 19:34 | NUR ---
PT AWAKE AND ALERT, NO SIGNS OF ACUTE DISTRESS. ENDORSED TO GENERAL DISTILLERY WORKER NURSE FOR CONTINUITY OF CARE.
--- NOTE | 2016-09-07 19:35 | NUR ---
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
[2016-09-07 20:00] VITALS: BP 117/72
--- NOTE | 2016-09-07 22:00 | NUR ---
A BIG BM LILQUID STOOL SPONGE BTH GIVEN AND LINEN CHANGED, REPOSITIONED Q 2H NOT DISTRESS NOTED
[2016-09-08] VITALS (7 sets, daily range): BP systolic 101–136; BP diastolic 68–89
--- NOTE | 2016-09-08 | NUR ---
PT SLEEPING WELL NOT SOB NOTED REPOSITIONED Q2H, O;N TELEMETRY SR G TUBE FEEDING WELL TOLERATED.
[2016-09-08] MEDS: VANCOMYCIN 500 MG VIAL PO SCH ×4 (00:46→17:45)
--- NOTE | 2016-09-08 04:00 | NUR ---
PT ON CLOSE MONITORING REPOSITIONED Q2HON TELMETRY SR, SPONGE BATH GIVEN LINEN CHANGED
--- NOTE | 2016-09-08 06:00 | NUR ---
PT ON TELEMETRY SR G TUBE FEEDING WELL TOLERATED IV ON LEFT FA INFUSING WELL
[2016-09-08] MEDS: METOCLOPRAMIDE 10 MG/2 ML INJ VIAL IVP SCH ×3 (06:02→20:58)
[2016-09-08 06:13] LABS: BASOPHILS # (AUTO) 0.2 K/uL (0.00-0.22); EOSINOPHILS # (AUTO) 0.1 K/uL (0-0.4); EOSINOPHILS % (AUTO) 1.4 % (0.0-4.0); HEMATOCRIT 28.5 % (36-52); HEMOGLOBIN 9.2 g/dL (12.0-18.0); LYMPHOCYTES # (AUTO) 1.8 K/uL (2.0-11.5); LYMPHOCYTES % (AUTO) 19.1 % (20.5-51.1); MEAN CORPUSCULAR HEMOGLOBIN 31 pg (27-31); MEAN CORPUSCULAR HGB CONC 32 g/dL (33-37); MEAN CORPUSCULAR VOLUME 97 fL (80-94); MONOCYTES # (AUTO) 0.5 K/uL (0.8-1.0); MONOCYTES % (AUTO) 5.5 % (1.7-9.3); NEUTROPHILS # (AUTO) 6.8 K/uL (1.8-7.7); PLATELET COUNT (AUTO) 426 K/uL (140-450); RED BLOOD CELL COUNT(AUTO) 2.94 MIL/uL (4.20-6.10); WHITE BLOOD COUNT (AUTO) 9.4 K/uL (4.8-10.8)
[2016-09-08 06:17] LABS: ANION GAP 9.3 (8-16); CALCIUM 7.2 mg/dL (8.5-10.1); CARBON DIOXIDE 26.8 mmol/L (21-32); CREATININE 0.6 mg/dL (0.6-1.3); POTASSIUM 3.1 mmol/L (3.5-5.1)
[2016-09-08 06:26] LABS: MAGNESIUM 1.8 mg/dL (1.8-2.4); PHOSPHORUS 1.9 mg/dL (2.5-4.9)
[2016-09-08] MEDS: ALBUTEROL SULFATE/IPRATROPIU 3 ML SOL IH PRN (06:54)
--- NOTE | 2016-09-08 07:20 | NUR ---
RECEIVED REPORT FROM THE MOTORCYCLE TECHNICIAN NURSE AT BEDSIDE FOR CONTINUITY OF CARE. PT IS AWAKE AND ORIENTED X1, APHASIC. INTRODUCED MYSELF AND UPDATED THE BOARD. IV ON L FA 22G TKO. GTUBE, FIBERSOURCE AT 30ML. PRESSURE ULCER BILATERAL BUTTOCKS, JAIME, Z-GUARD ADMINISTERED. V/S WITHIN NORMAL RANGE. WILL CONTINUE TO MONITOR PT.
[2016-09-08] MEDS: PANTOPRAZOLE 40 MG INJ VIAL IVP SCH (08:45)
[2016-09-08] MEDS: TOPIRAMATE 25 MG TAB GT SCH ×2 (08:45→21:00)
[2016-09-08] MEDS: POTASSIUM CHLORIDE 20% 40 MEQ/15 ML UDC GT SCH (08:45)
[2016-09-08] MEDS: levETIRAcetam 100 MG/ML ORASYR GT SCH ×3 (08:46→17:45)
[2016-09-08] MEDS: CHLORPHENIRAMINE 4 MG TAB GT SCH ×2 (08:46→21:01)
[2016-09-08] MEDS: MONTELUKAST SODIUM 10 MG TAB GT SCH (08:47)
[2016-09-08] MEDS: LACTOBACILLUS RHAMNOSUS GG 1 EACH CAP GT SCH (08:47)
[2016-09-08] MEDS: BENZTROPINE 1 MG TAB GT SCH ×2 (08:47→21:01)
[2016-09-08] MEDS: PHARMACY COMMENTS MC SCH (09:11)
[2016-09-08] MEDS: LEVOTHYROXINE 0.05 MG TAB GT SCH (09:15)
[2016-09-08] MEDS: Z-GUARD PASTE TP SCH ×2 (09:15→21:02)
--- NOTE | 2016-09-08 09:20 | NUR ---
ADMINISTERED MORNING MEDS. CHECKED FOR PLACEMENT AND RESIDUAL. RESIDUAL 0. CRUSHED AND ADMINISTERED THRU G-TUBE. PT TOLERATED WELL. RESTARTED THE FEEDING. WILL CONTINUE TO MONITOR PT.
--- NOTE | 2016-09-08 11:00 | NUR ---
PT RESTING COMFORTABLY. WILL CONTINUE TO MONITOR PT.
--- NOTE | 2016-09-08 13:10 | NUR ---
ADMINISTERED AFTERNOON MEDS. PT TOLERATED WELL. RESIDUAL OF 100ML. HELD GTUBE FEEDING. WILL CONTINUE TO MONITOR
[2016-09-08] MEDS ORDERED: POTASSIUM CHLORIDE 40 MEQ, LIDOCAINE 1% 25 MG in NACL 0.9% 250 ML IV ONE (15:10)
--- NOTE | 2016-09-08 15:38 | NUR ---
PT SLEEPING COMFORTABLY. NO SIGNS OF DISTRESS. WILL CONTINUE TO MONITOR PT.
--- NOTE | 2016-09-08 16:44 | NUR ---
SS NOTE: PER KIKA FROM [facility], NO ISO MALE BED AVAILABLE PER BELEM FROM [facility], NO ISO MALE BED AVAILABLE PER COURTNEY FROM [facility], NO ISO MALE BED AVAILABLE PER KIM FROM [facility], NO ISO MALE BED AVAILABLE PER EFREM FROM [facility], NO ISO MALE BED AVAILABLE PER RAVINDRA FROM [facility], NO ISO MALE BED AVAILABLE PER KIKA FROM [facility], NO ISO MALE BED AVAILABLE
--- NOTE | 2016-09-08 17:50 | NUR ---
ADMINISTERED AFTERNOON MEDS. PT TOLERATED WELL. WILL CONTINUE TO MONITOR PT.
[2016-09-08] MEDS: DEXT 5% / NACL 0.45% 1,000 ML IV SCH (18:10)
--- NOTE | 2016-09-08 19:25 | NUR ---
ENDORSED PT TO THE SENIOR UNDERWRITING ASSISTANT NURSE AT BEDSIDE FOR CONTINUITY OF CARE. PT IS IN STABLE CONDITION.
--- NOTE | 2016-09-08 19:30 | NUR ---
RECEIVED PT FROM JIMMY RN PT WITH HX CEREBRAL PALSY,APHASIC, ON TELEMETRY SR IV ON LEFT FA INFUSING WELL ON FEEDING PUMP WELL TOLERATED ZERO RESIDUAL , ON BILATERAL SEQUENTIAL STOCKING, REPOSITIONED INITIAL ASSESSMENT DONE
--- NOTE | 2016-09-08 21:54 | NUR ---
PT REPOSITIONED Q2H NOT DISTRESS NOTED LINEN CHANGED PT INCONTINENT
[2016-09-09] VITALS: BP 100/70
--- NOTE | 2016-09-09 | NUR ---
SPONGE BATH GIVEN LINEN CHANGED G TUBE FEEDING WELL TOLERATED PT ON TELEMETRY SR NOT FEVER NOT DISTRESS
[2016-09-09] MEDS ORDERED: WATER STERILE 20 ML MC ONE (01:14)
[2016-09-09 04:00] VITALS: BP 108/70
--- NOTE | 2016-09-09 04:00 | NUR ---
PT HAS ONE BM LIQUID STOOL ALL BRANCH STORE MANAGER, NOT FEVER, IV ON LEFT FA INFUSING WELL ON TELEMETRY SR
[2016-09-09] MEDS: METOCLOPRAMIDE 10 MG/2 ML INJ VIAL IVP SCH ×2 (05:36→12:26)
[2016-09-09] MEDS: VANCOMYCIN 500 MG VIAL PO SCH ×4 (05:37→18:00)
[2016-09-09 06:12] LABS: BASOPHILS # (AUTO) 0.2 K/uL (0.00-0.22); BASOPHILS % (AUTO) 1.3 % (0.0-2.0); EOSINOPHILS # (AUTO) 0.1 K/uL (0-0.4); EOSINOPHILS % (AUTO) 1.2 % (0.0-4.0); HEMATOCRIT 32.3 % (36-52); HEMOGLOBIN 10.7 g/dL (12.0-18.0); LYMPHOCYTES % (AUTO) 16.6 % (20.5-51.1); MEAN CORPUSCULAR HEMOGLOBIN 32 pg (27-31); MEAN CORPUSCULAR HGB CONC 33 g/dL (33-37); MEAN CORPUSCULAR VOLUME 97 fL (80-94); MONOCYTES # (AUTO) 0.8 K/uL (0.8-1.0); MONOCYTES % (AUTO) 6.3 % (1.7-9.3); NEUTROPHILS # (AUTO) 8.9 K/uL (1.8-7.7); PLATELET COUNT (AUTO) 507 K/uL (140-450); RED BLOOD CELL COUNT(AUTO) 3.33 MIL/uL (4.20-6.10); RED CELL DISTRIBUTION WIDTH 12.3 % (11.6-13.7)
--- NOTE | 2016-09-09 06:16 | NUR ---
PT COOPERATIVE TO DO MORNING CARE REPOSITIONED SR ON TELEMETRY, PENDING PLACE TO BE TRANSFER
[2016-09-09 06:32] LABS: ANION GAP 9.2 (8-16); CALCIUM 7.7 mg/dL (8.5-10.1); CARBON DIOXIDE 28.7 mmol/L (21-32); CREATININE 0.6 mg/dL (0.7-1.3); POTASSIUM 3.9 mmol/L (3.5-5.1)
[2016-09-09 06:37] LABS: MAGNESIUM 1.9 mg/dL (1.8-2.4); PHOSPHORUS 2.1 mg/dL (2.5-4.9)
--- NOTE | 2016-09-09 07:30 | NUR ---
RECEIVED REPORT FROM NEREYDA LUONG. PT OPENS EYES, UNABLE TO FOLLOW COMMANDS. HX CEREBRAL PALSY. ROOM AIR , NO SOB.G-TUBE IN PLACE, RESIDUAL 0, SCD IN PLACE, WILL CONTINUE TO MONITOR PT CLOSELY.
[2016-09-09 07:41] LABS: NEUTROPHILS % (AUTO) 74.6 % (42.2-75.2)
[2016-09-09 08:00] VITALS: BP 115/71
[2016-09-09] MEDS: BENZTROPINE 1 MG TAB GT SCH (08:17)
[2016-09-09] MEDS: POTASSIUM CHLORIDE 20% 40 MEQ/15 ML UDC GT SCH (08:17)
[2016-09-09] MEDS: TOPIRAMATE 25 MG TAB GT SCH (08:18)
[2016-09-09] MEDS: LACTOBACILLUS RHAMNOSUS GG 1 EACH CAP GT SCH (08:18)
[2016-09-09] MEDS: MONTELUKAST SODIUM 10 MG TAB GT SCH (08:18)
[2016-09-09] MEDS: PANTOPRAZOLE 40 MG INJ VIAL IVP SCH (08:19)
[2016-09-09] MEDS: LEVOTHYROXINE 0.05 MG TAB GT SCH (08:19)
[2016-09-09] MEDS: CHLORPHENIRAMINE 4 MG TAB GT SCH (08:19)
[2016-09-09] MEDS: Z-GUARD PASTE TP SCH (08:22)
[2016-09-09] MEDS ORDERED: SODIUM PHOS / POTASSIUM PHOS 1 PKT PDR GT SCH (09:00)
[2016-09-09] MEDS: PHARMACY COMMENTS MC SCH (09:00)
--- NOTE | 2016-09-09 09:15 | NUR ---
DUE MEDS GIVEN. PT TOLERATED WELL.
[2016-09-09] MEDS: levETIRAcetam 100 MG/ML ORASYR GT SCH ×3 (10:02→17:16)
--- NOTE | 2016-09-09 10:20 | NUR ---
09/09/16 RD FOLLOW-UP ASSESSMENT COMPLETED PLEASE REFER TO NUTRITION ASSESSMENT UNDER CARE ACTIVITY FOR ESTIMATED NUTRITIONAL NEEDS. 1. ADVANCE TF INFUSION RATE - FIBERSOURCE HN AT 30 ML/HR, ADVANCE 10 ML Q8H TO A GOAL RATE OF 60 ML/HR (PROVIDES 2. RD TO FOLLOW-UP 2-3 DAYS; HIGH RISK WHIT MORRISSEY, RD
--- NOTE | 2016-09-09 12:05 | NUR ---
TURNED AND REPOSITIONED PT. NO S/S OF RESPIRATORY DISTRESS NOTED. PT OPENS EYES, UNABLE TO FOLLOW COMMANDS. VITALS TAKEN, IN NORMAL RANGE.
--- NOTE | 2016-09-09 15:32 | NUR ---
PT BEDBOUND. OPENS EYES, UNABLE TO MAKE NEEDS KNOWN. NO S/S OF RESPIRATORY DISTRESS NOTED. WILL CONTINUE TO MONITOR.
[2016-09-09 16:00] VITALS: BP 133/85
--- NOTE | 2016-09-09 16:12 | NUR ---
SS NOTE: PER CORTNEY FROM [facility] ([phone]), THEY HAVE AN ISO ROOM AVAILABLE FOR PT AND PT CAN GO TO ROOM 35B UNDER DR. Kimber BROWN ANYTIME AFTER 1999 TODAY. SHE ALSO STATED THAT REPORT CAN BE CALLED IN AFTER 1800. ABHAY MCGHEE.
--- NOTE | 2016-09-09 16:29 | NUR ---
CM NOTE PATIENT TO BE PICKED UP VIA GURNEY BY [facility] GOING TO [facility]. ETA 1999. TRANSPORT MADE AWARE THAT PATIENT IS ON CONTACT ISO FOR CDIFF. MILTON MENDOZA MADE AWARE.
[2016-09-09] MEDS ORDERED: VANC125C4 PO (16:38)
--- NOTE | 2016-09-09 16:45 | NUR ---
PT HAD MODERATE AMOUNT OF LOOSE YELLOW STOOL, CLEANED PT. NO S/S OF RESPIRATORY DISTRESS NOTED.
[2016-09-09] MEDS ORDERED: TOPI25TA10 GT (16:49)
--- NOTE | 2016-09-09 16:52 | NUR ---
SS NOTE: MESSAGE LEFT FOR TABITHA PT'S [facility] ADVISER ([phone]) INFORMING HER OF PT'S D/C TO [facility]
[2016-09-09] MEDS: DEXT 5% / NACL 0.45% 1,000 ML IV SCH (18:30)
--- NOTE | 2016-09-09 18:36 | NUR ---
REPORT GIVEN TO KYLEE HUMMEL [phone] .
--- NOTE | 2016-09-09 18:45 | NUR ---
CALLED AUDREY INTERIANO [phone], NO RESPONSE. VOICE MESSAGE LEFT. INFORMED HER PT WILL BE TRANSFERRED TO [facility] AT 1999.
--- NOTE | 2016-09-09 19:28 | NUR ---
RECEIVED REPORT, ASSUMED CARE. PT AWAKE, NONVERBAL. RESPIRATION EVEN AND UNLABORED,NO SOB, NO S/S OF RESPIRATORY DISTRESS AT THIS TIME. NO FACIAL GRIMACING OR MOANING INDICATING PAIN. PER AM NURSE, [place] [facility] [place] [place] WILL BE [place]ICK[place] UP AT 1999. WILL CONTINUE TO MONITOR.
[2016-09-09 20:00] VITALS: BP 97/71
--- NOTE | 2016-09-09 20:20 | NUR ---
PT WAS PICKED UP BY [facility] VIA AMBULANCE TO TRANSPORT [facility]. PT AWAKE AND RESPONSIVE. NO ACUTE CHANGES NOTED, NO SEIZURE EPISODE. NO S/S OF RESPIRATORY DISTRESS. WRISTBAND, GT FEEDING REMOVED. PHOTOS TAKEN TO RT AND LEFT BUTTOCKS, NO OPEN SORE NOTED AT THIS TIME. REDNESS TO PERINEAL AREA NOTED. TX APPLIED ORDERED. PT IN STABLE CONDITION.
== END 2016-09-09 20:25 | DRG 720 ==
LOC: MED 18:30 → MTU 22:01
PROVIDERS: ADMIT Family Medicine; ATTEND Family Medicine
DX: A41.9 Sepsis, unspecified organism (principal); N17.0 Acute kidney failure with tubular necrosis; J69.0 Pneumonitis due to inhalation of food and vomit; E43 Unspecified severe protein-calorie malnutrition; E87.0 Hyperosmolality and hypernatremia; K92.0 Hematemesis; A04.7 Enterocolitis due to Clostridium difficile; L89.151 Pressure ulcer of sacral region, stage 1; N39.0 Urinary tract infection, site not specified; E86.0 Dehydration; G80.9 Cerebral palsy, unspecified; F79 Unspecified intellectual disabilities; E03.9 Hypothyroidism, unspecified; G40.909 Epilepsy, unspecified, not intractable, without status epilepticus; Z16.21 Resistance to vancomycin; H54.41 Blindness, right eye, normal vision left eye; R13.19 Other dysphagia; E87.6 Hypokalemia; K56.7 Ileus, unspecified; E11.9 Type 2 diabetes mellitus without complications; I34.0 Nonrheumatic mitral (valve) insufficiency; Z93.1 Gastrostomy status; Z79.899 Other long term (current) drug therapy; Z68.20 Body mass index [BMI] 20.0-20.9, adult
CPT/HCPCS: 36415; 36600; 71010; 74000; 80048; 80053; 80156; 80305; 81001; 82040; 82150; 82803; 82948; 83036; 83605; 83690; 83735; 83880; 84100; 84443; 85025; 85610; 85730; 87040; 87070; 87081; 87086; 87186; 93005; 94640; 96365; 99285; C9113; J0696; J1364; J1940; J1956; J2001; J2060; J2270; J2405; J2543; J2765; J3370; J3480; J3490; J7030; J7060; J7613; J7620; J8597; Q0092